=== PATIENT | female | born 1945 | race Caucasian/White ===

== ENCOUNTER 2020-02-09 12:30 | Outpatient (RCR) | payer MEDICARE, OTHER, SELFPAY ==
[2020-01-25 13:05] VITALS: BMI 20.7
[2020-02-02 11:05] VITALS: BP 154/93; PULSE 68; RESP 18; TEMP 36.1; BMI 20.1
--- NOTE | 2020-02-02 17:14 | HP.PCM_ITS ---
(1) Breast cancer, left breast Status: Chronic Current Visit: Yes Qualifiers: Breast location: overlapping sites of breast Estrogen receptor status: negative Patient sex: female Qualified Code(s): C50.812 - Malignant neoplasm of overlapping sites of left female breast; Z17.1 - Estrogen receptor negative status [ER-] Code(s): C50.912 - Malignant neoplasm of unspecified site of left female breast (2) HTN (hypertension) Status: Chronic Current Visit: Yes Qualifiers: Hypertension type: essential hypertension Qualified Code(s): I10 - Essential (primary) hypertension Code(s): I10 - Essential (primary) hypertension (3) Invasive ductal carcinoma of breast, stage 3 Status: Acute Current Visit: Yes Qualifiers: Laterality: left Qualified Code(s): C50.912 - Malignant neoplasm of unspecified site of left female breast Code(s): C50.919 - Malignant neoplasm of unspecified site of unspecified female breast (4) Wound of left breast Status: Acute Current Visit: Yes Qualifiers: Encounter type: subsequent encounter Qualified Code(s): S21.002D - Unspecified open wound of left breast, subsequent encounter Code(s): S21.002A - Unspecified open wound of left breast, initial encounter History of Present Illness Date of Service: 02/02/20 Chief Complaint: Invasive left breast carcinoma with skin ulceration History of Wound: Marilia Lino is a sweet 74 yo female who presents to the wound healing center for evaluation and treatment of her left breast from metastatic breast cancer with skin ulceration and break down. She is referred by Dr. Anand. She is seeking palliative treatment at this time and she plans on starting palliative radiation treatment this coming week and has not decided at this time whether she will undergo any additional chemotherapy. She reports that the skin is tender and irritated and does intermittently bleed and drains moderately at times. She has been applying essential oil frankincense and petroleum based ointment as well as using feminine hygiene products to manage the drainage. She denies any fever or chills, worsening erythema or odor. Past Medical History Past Medical History: Chronic Problems (Last Updated 01/25/20 @ 12:59 by Dedra Andrews RN) Breast cancer, left breast (Chronic) HTN (hypertension) (Chronic) Surgical History: mastectomy - right breast Allergies/Adverse Reactions: Allergies No Known Allergies Allergy (Unverified 01/25/20 12:56) Home Medications: Ambulatory Orders Medication Instructions Recorded Ibuprofen [Advil] 200 mg PO Q6H PRN PRN 02/02/20 - Family History Maternal Family History: Family History (Last Updated 01/25/20 @ 13:04 by Dedra Andrews RN) Mother Breast cancer Brother Prostate cancer Lives: Spouse/ Significant Other Smoking Status: Never smoker Tobacco Use: Non-smoker Alcohol: None Drugs: None Review of Systems Constitutional: Denies: Chills, Fever, Weight Change Eyes: Denies: Pain, Vision Change HEENT: Denies: Difficulty Hearing, Difficulty Swallowing, Sinus Congestion Cardiovascular: Denies: Chest Pain, Palpitations Respiratory: Denies: Cough, Shortness of Breath Gastrointestinal: Denies: Diarrhea, Nausea, Vomiting Genitourinary: Denies: Dysuria, Hematuria Skin: Reports: Skin Changes, Wounds Endocrine: Denies: Heat/ Cold Intolerance, Polydipsia, Polyuria Hematologic/ Lymphatic: Denies: Easy Bruising, Easy Bleeding - Physical Exam Vital Signs Temp Pulse Resp BP 97 F L 68 18 154/93 H 02/02/20 11:05 02/02/20 11:05 02/02/20 11:05 02/02/20 11:05 General: Alert, Oriented x3, Cooperative, No apparent distress HEENT: Atraumatic, Normocephalic Oral: Moist Mucosa Neck: Supple Lungs: Clear to auscultation Cardiovascular: Regular rate Abdomen: Soft, Non Tender Extremities: No edema Skin: Ulcer/ Wound, Rash Present Wound Measurements and Assessment WC - Nurse 1 - General Ulcer Measurement Start: 02/02/20 10:48 Freq: Status: Active Protocol: Activity Type Activity Date Activity User E-Sign Co-Sign Detail Recorded Client Recorded Date Recorded By Document 02/02/20 11:05 RB [id number] 02/02/20 11:16 RB 02/02/20 11:05 Wound Center Nurse 1 [Ulcer Assessment] L breast -Combined with other wound No -Current Size (cm) - Length 5 -Current Size (cm) - Width 8 -Current Size (cm) - Depth 0.2 -Total Square Cm 40 -Photo Taken Yes -Tunneling No -Undermining/Tunneling No -Circular Undermining No -Exudate Amt Medium -Exudate Type Serosanguineous -Wound Margin Thickened -Granulation Amt Medium (34-66%) -Granulation Quality [place] -Slough/Fibrin Yes -Necrosis Amt Large (67-100%) -Necrotic Tissue Type Adherent Slough -Structure Exposed N/A -Texture (Suha-wound Skin Appearance) Assessed, Friable -Moisture (Usha-wound Skin Appearance Assessed ) -Color (Suha-wound Skin Appearance) Assessed, Erythema -Temperature (Suha-wound Skin No Abnormality Appearance) (Pt Warm) -Tenderness on Palpation (Suha-wound No Skin Appearance) -Ulcer Cleansing Wound Cleanser -Foul Odor after Cleansing No -Anesthetic Used 4% Lidocaine Solution - Nurse 2 - General Ulcer Notes Start: 02/02/20 10:48 Freq: Status: Active Protocol: Activity Type Activity Date Activity User E-Sign Co-Sign Detail Recorded Client Recorded Date Recorded By Document 02/02/20 12:46 DV [id number] 02/02/20 12:59 DV 02/02/20 12:46 Wound Center Nurse 2 [Procedure/Treatment] -Time 12:59 -Correct Patient Yes -Correct Side, Site, Position Yes -Correct Procedure No -Procedure Performed No -Wound/Ulcer Outcome Not Healed -Ulcer Cleansing Rinsed/ Irrigated with Saline -Foul Odor after Cleansing No -Bioengineered Tissue No -Bleeding Controlled with Pressure -Offloading No [See Physician Procedure note for Specifics] Pain Scale: 0-10 Numeric [Pain] -Is Patient Pain Free? Yes Psych/Mental Status: Normal Affect, Appropriate Debridement Note Post-Debridement Measurements/Treatment [facility] Nurse 2 - General Ulcer Notes Start: 02/02/20 10:48 Freq: Status: Active Protocol: Activity Type Activity Date Activity User E-Sign Co-Sign Detail Recorded Client Recorded Date Recorded By Document 02/02/20 12:46 DV [id number] 02/02/20 12:59 DV 02/02/20 12:46 Wound Center Nurse 2 L breast -Time 12:59 -Correct Patient Yes -Correct Side, Site, Position Yes -Correct Procedure No -Procedure Performed No -Wound/Ulcer Outcome Not Healed -Ulcer Cleansing Rinsed/ Irrigated with Saline -Foul Odor after Cleansing No -Bioengineered Tissue No -Bleeding Controlled with Pressure -Offloading No Pain Scale: 0-10 Numeric Is Patient Pain Free? Yes Wound debrided: left breast Laterality: Left No debridement was completed today - due to no open wound - mainly skin breakdown at present Assessment/Plan Active Problems (Last Updated 01/25/20 @ 12:59 by Dedra Andrews RN) Breast cancer, left breast (Chronic) HTN (hypertension) (Chronic) Invasive ductal carcinoma of breast, stage 3 (Acute) Wound of left breast (Acute) Assessment: left breast cancer - metastatic with skin ulceration and breakdown Plan: Marilia's left breast wound/skin breakdown was evaluated and examined today. There is no significant open wound present at this time but there is skin breakdown and with the initiation of radiation treatment it is likely there will be increased skin irritation and breakdown and likely ulceration developing as well as moderate to heavy drainage from the skin breakdown and radiation treatment. Will dress her left breast wound and irritation with Medihoney and extrasorb dressings and/or ABD if needed for the anticipated heavy drainage she will experience with radiation to the area. Would also consider using Meidhoney alginate to help absorb dressing and provide comfort. Will have her follow up in 1 week to assess the area and adjust treatment as necessary based on her response to the above and to radiation. Encouraged her to call with increased erythema, odor, drainage or fever or chills.
[2020-02-09 12:25] VITALS: BP 161/66; PULSE 69; RESP 16; TEMP 36.8; BMI 20.1
--- NOTE | 2020-02-09 17:54 | PN.PCM_ITS ---
(1) HTN (hypertension) Status: Chronic Current Visit: Yes Qualifiers: Hypertension type: essential hypertension Qualified Code(s): I10 - Essential (primary) hypertension Code(s): I10 - Essential (primary) hypertension (2) Wound of left breast Status: Chronic Current Visit: Yes Qualifiers: Encounter type: subsequent encounter Qualified Code(s): S21.002D - Unspecified open wound of left breast, subsequent encounter Code(s): S21.002A - Unspecified open wound of left breast, initial encounter (3) Cancer of left female breast Status: Chronic Current Visit: Yes Qualifiers: Breast location: overlapping sites of breast Estrogen receptor status: negative Qualified Code(s): C50.812 - Malignant neoplasm of overlapping sites of left female breast; Z17.1 - Estrogen receptor negative status [ER-] Code(s): C50.912 - Malignant neoplasm of unspecified site of left female breast Type of Wound Date of Service: 02/09/20 Chief Complaint: Invasive left breast carcinoma with skin ulceration History of Wound: Marilia Lino is a sweet 74 yo female who presents to the wound healing center for evaluation and treatment of her left breast from metastatic breast cancer with skin ulceration and break down. She is referred by Dr. Anand. She is seeking palliative treatment at this time and she plans on starting palliative radiation treatment this coming week and has not decided at this time whether she will undergo any additional chemotherapy. She reports that the skin is tender and irritated and does intermittently bleed and drains moderately at times. She has been applying essential oil frankincense and petroleum based ointment as well as using feminine hygiene products to manage the drainage. She denies any fever or chills, worsening erythema or odor. Progress of Wound: Marilia's left breast wound was evaluated and selectively debrided today. She tolerated the dressings of [facility] well and has noted increased comfort. Drainage has been variable but less bleeding. She completed 5 radiation treatments as of today. She denies increased odor, pain. - Physical Exam Vital Signs Temp Pulse Resp BP 98.2 F 69 16 161/66 H 02/09/20 12:25 02/09/20 12:25 02/09/20 12:25 02/09/20 12:25 General: Alert, Oriented x3, Cooperative, No apparent distress HEENT: Atraumatic, Normocephalic Oral: Moist Mucosa Skin: Ulcer/ Wound, Rash Present Wound Measurements and Assessment - Nurse 1 - General Ulcer Measurement Start: 02/02/20 10:48 Freq: Status: Active Protocol: Activity Type Activity Date Activity User E-Sign Co-Sign Detail Recorded Client Recorded Date Recorded By Document 02/09/20 12:25 [facility] [id number] 02/09/20 12:27 [facility] 02/09/20 12:25 Wound Center Nurse 1 [Ulcer Assessment] L breast -Combined with other wound No -Current Size (cm) - Length 5.5 -Current Size (cm) - Width 8.8 -Current Size (cm) - Depth 0.2 -Total Square Cm 48.40 -Photo Taken No -Epithelialization None Present -Tunneling No -Undermining/Tunneling No -Circular Undermining No -Exudate Amt Small -Exudate Type Serosanguineous -Wound Margin Distinct, Outline Attached -Granulation Amt Medium (34-66%) -Granulation Quality [place] -Slough/Fibrin Yes -Necrosis Amt Medium (34-66%) -Necrotic Tissue Type Adherent Slough -Texture (Suha-wound Skin Appearance) Assessed, Excoriation, Scarring,Rash -Moisture (Suha-wound Skin Appearance Assessed ) -Color (Suha-wound Skin Appearance) Assessed, Erythema -Temperature (Suha-wound Skin No Abnormality Appearance) (Pt Warm) -Tenderness on Palpation (Suha-wound Yes Skin Appearance) -Ulcer Cleansing Rinsed/ Irrigated with Saline -Foul Odor after Cleansing No -Anesthetic Used 4% Lidocaine Solution - Nurse 2 - General Ulcer CM Notes Start: 02/02/20 10:48 Freq: Status: Active Protocol: Activity Type Activity Date Activity User E-Sign Co-Sign Detail Recorded Client Recorded Date Recorded By Document 02/09/20 13:17 DV [id number] 02/09/20 13:26 DV 02/09/20 13:17 Wound Center Nurse 2 [Procedure/Treatment] -Time 13:25 -Correct Patient Yes -Correct Side, Site, Position Yes -Correct Procedure No -Procedure Performed No -Post Debridement Size (cm) - Length 6.0 -Post Debridement Size (cm) - Width 9.0 -Post Debridement Size (cm) - Depth 0.2 -Total Square Cm 54.00 -Wound/Ulcer Outcome Not Healed -Ulcer Cleansing Rinsed/ Irrigated with Saline -Foul Odor after Cleansing No -Bioengineered Tissue No -Bleeding Controlled with Pressure -Offloading No -Treatment Response Procedure Tolerated Well [See Physician Procedure note for Specifics] Pain Scale: 0-10 Numeric [Pain] -Is Patient Pain Free? Yes Psych/Mental Status: Normal Affect, Appropriate Debridement Note Post-Debridement Measurements/Treatment WC - Nurse 2 - General Ulcer CM Notes Start: 02/02/20 10:48 Freq: Status: Active Protocol: Activity Type Activity Date Activity User E-Sign Co-Sign Detail Recorded Client Recorded Date Recorded By Document 02/02/20 12:46 DV [id number] 02/02/20 12:59 DV Document 02/09/20 13:17 DV [id number] 02/09/20 13:26 DV 02/02/20 02/09/20 12:46 13:17 Wound Center Nurse 2 L breast -Time 12:59 13:25 -Correct Patient Yes Yes -Correct Side, Site, Position Yes Yes -Correct Procedure No No -Procedure Performed No No -Post Debridement Size (cm) - Length 6.0 -Post Debridement Size (cm) - Width 9.0 -Post Debridement Size (cm) - Depth 0.2 -Total Square Cm 54.00 -Wound/Ulcer Outcome Not Healed Not Healed -Ulcer Cleansing Rinsed/ Rinsed/ Irrigated with Irrigated with Saline Saline -Foul Odor after Cleansing No No -Bioengineered Tissue No No -Bleeding Controlled with Pressure Pressure -Offloading No No -Treatment Response Procedure Tolerated Well Pain Scale: 0-10 Numeric Is Patient Pain Free? Yes Yes Wound debrided: left breast Laterality: Left Type of Debridement: Selective debridement Depth: Down to and including healthy tissue Percentage of wound debrided: 100 Instrument Used: - - gauze Tissue Removed: devitalized tissue Severity: Limited To Skin Breakdown Amount of bleeding with debridement: None Bleeding Controlled with: Compression and gauze Patient tolerated procedure well Assessment/Plan Active Problems (Last Reviewed 02/08/20 @ 10:55 by Ria Coyne) Cancer of left female breast (Chronic) Regional lymph node metastasis present (Acute) Bone metastases (Acute) Liver metastases (Acute) HTN (hypertension) (Chronic) Wound of left breast (Chronic) Assessment: left breast cancer - metastatic with skin ulceration and breakdown Plan: Marilia's left breast wound was evaluated and debrided today. There is superficial skin breakdown throughout with subcutaneous tissue exposure in some areas. Some ulceration is developing as well as variable moderate to heavy drainage from the skin breakdown and radiation treatment. Will dress her left breast wound with Medihoney and extrasorb dressings and/or ABD if needed for the heavy drainage she is experiencing. Would also consider using Medihoney alginate to help absorb drainage and provide comfort. Will have her follow up in 2 weeks to assess the area and adjust treatment as necessary based on her response to the above and to radiation. Encouraged her to call with increased erythema, odor, drainage or fever or chills.
== END 2020-02-18 23:59 ==
LOC: WC 12:30
PROVIDERS: PCP Legal Medicine; Referring Provider Student in an Organized Health Care Education/Training Program; Visit Provider Family Medicine
DX: C50.912 Malignant neoplasm of unspecified site of left female breast (principal); L98.491 Non-pressure chronic ulcer of skin of other sites limited to breakdown of skin; I10 Essential (primary) hypertension; Z17.1 Estrogen receptor negative status [ER-]
CPT/HCPCS: 97602; 99213; G0463

== ENCOUNTER → 2020-02-28 14:37 | Outpatient (CLI) | payer MEDICARE, OTHER, SELFPAY ==
[2020-01-25 13:05] VITALS: BMI 20.7
[2020-02-28 09:08] VITALS: BMI 20.6
--- NOTE | 2020-02-28 14:50 | RAD_ITS ---
STUDY: X-RAY - CERVICAL SPINE REASON FOR EXAM: Female, 74 years old. PAIN, NKI. TECHNIQUE: 3 view(s) of the cervical spine were obtained. COMPARISON: None FINDINGS: Normal anterior atlantoaxial articulation. Normal odontoid process. There is straightening of the normal cervical lordosis. There is multi-level endplate spondylosis. There is multi-level degenerative disc disease with multilevel disc space narrowing. The soft tissue structures are unremarkable. There is no demonstrated fracture of the cervical spine. RAD/Cerv Spine 2 or 3 Views IMPRESSION: Multilevel degenerative changes, no acute findings Electronically Signed: Kenneth Pemberton MD at 16:49 EDT , Service support ,
--- NOTE | 2020-02-28 14:50 | RAD_ITS ---
STUDY: X-RAY - LUMBAR SPINE REASON FOR EXAM: Female, 74 years old. Radiating left leg pain TECHNIQUE: 3 view(s) of the lumbar spine were obtained. COMPARISON: None FINDINGS: Normal lumbar lordosis. There is a levoscoliosis of the lumbar spine. There is a normal alignment of the vertebrae in the lateral view from L1 L4. There is a grade 1 spondylolisthesis at L4-5.. There is multilevel endplate spondylosis of the lumbar vertebrae. There is multi-level degenerative disc disease with multi-level disc space narrowing. There is no demonstrated fracture. The soft tissue structures are unremarkable. RAD/Lumbar Spine 2 or 3 Views IMPRESSION: Multilevel degenerative changes with a levoscoliosis. Electronically Signed: Kenneth Pemberton MD at 16:50 EDT , Service support ,
== END ==
PROVIDERS: PCP Legal Medicine; Referring Provider Anesthesiology Pain Medicine; Visit Provider Anesthesiology Pain Medicine
DX: M54.9 Dorsalgia, unspecified (principal); M54.2 Cervicalgia
CPT/HCPCS: 36591; 72040; 72100; 80053; 85025; 86300; 96367; 96401; 96413; J7050; A4216; J0897; J2405; J3490; J9171

== ENCOUNTER 2020-03-15 09:00 | Outpatient (RCR) | payer MEDICARE, OTHER, SELFPAY ==
[2020-01-25 13:05] VITALS: BMI 20.7
[2020-02-14 10:45] VITALS: BMI 20.9
[2020-02-19 00:33] VITALS: BP 161/66; PULSE 69; RESP 16; TEMP 36.8
[2020-02-28 09:08] VITALS: BMI 20.6
[2020-03-01 08:44] VITALS: BP 137/65; PULSE 61; RESP 16; TEMP 37; BMI 20.6
--- NOTE | 2020-03-01 18:25 | PCM.WC.PN ---
(1) Bone metastases Status: Acute Code(s): C79.51 - Secondary malignant neoplasm of bone (2) Regional lymph node metastasis present Status: Acute Code(s): C77.9 - Secondary and unspecified malignant neoplasm of lymph node, unspecified (3) Cancer of left female breast Status: Chronic Qualifiers: Breast location: overlapping sites of breast Estrogen receptor status: negative Qualified Code(s): C50.812 - Malignant neoplasm of overlapping sites of left female breast; Z17.1 - Estrogen receptor negative status [ER-] Code(s): C50.912 - Malignant neoplasm of unspecified site of left female breast (4) Wound of left breast Status: Chronic Qualifiers: Encounter type: subsequent encounter Qualified Code(s): S21.002D - Unspecified open wound of left breast, subsequent encounter Code(s): S21.002A - Unspecified open wound of left breast, initial encounter Type of Wound Date of Service: 03/01/20 Chief Complaint: Invasive left breast carcinoma with skin ulceration History of Wound: Marilia Lino is a sweet 74 yo female who presents to the wound healing center for evaluation and treatment of her left breast from metastatic breast cancer with skin ulceration and break down. She is referred by Dr. Anand. She is seeking palliative treatment at this time and she plans on starting palliative radiation treatment this coming week and has not decided at this time whether she will undergo any additional chemotherapy. She reports that the skin is tender and irritated and does intermittently bleed and drains moderately at times. She has been applying essential oil frankincense and petroleum based ointment as well as using feminine hygiene products to manage the drainage. She denies any fever or chills, worsening erythema or odor. Progress of Wound: Marilia's left breast wound was evaluated and selectively debrided today. She tolerated the dressings of [facility] well and has noted increased comfort. Drainage has been variable but less bleeding. She completed her radiation treatments as of today. She denies increased odor but there has been more pain. Drainage is still moderate to heavy at times. - Physical Exam Vital Signs Temp Pulse Resp BP 98.6 F 61 16 137/65 H 03/01/20 08:44 03/01/20 08:44 03/01/20 08:44 03/01/20 08:44 General: Alert, Oriented x3, Cooperative, No apparent distress HEENT: Atraumatic, Normocephalic Oral: Moist Mucosa Skin: Ulcer/ Wound, Burn Wound Measurements and Assessment WC - Nurse 1 - General Ulcer Measurement Start: 03/01/20 08:43 Freq: Status: Active Protocol: Activity Type Activity Date Activity User E-Sign Co-Sign Detail Recorded Client Recorded Date Recorded By Document 03/01/20 08:44 MW [id number] 03/01/20 08:51 MW 03/01/20 08:44 Wound Center Nurse 1 [Ulcer Assessment] L breast -Combined with other wound No -Current Size (cm) - Length 5.5 -Current Size (cm) - Width 9.0 -Current Size (cm) - Depth 0.1 -Total Square Cm 49.50 -Photo Taken No -Epithelialization None Present -Tunneling No -Undermining/Tunneling No -Circular Undermining No -Exudate Amt Medium -Exudate Type Serosanguineous -Wound Margin Flat & Intact -Granulation Amt Small (1-33%) -Granulation Quality Red -Slough/Fibrin Yes -Necrosis Amt Large (67-100%) -Necrotic Tissue Type Adherent Slough -Structure Exposed N/A -Texture (Suha-wound Skin Appearance) Assessed -Moisture (Suha-wound Skin Appearance Assessed,Dry/ ) Scaly -Color (Suha-wound Skin Appearance) Assessed,Rubor -Temperature (Suha-wound Skin No Abnormality Appearance) (Pt Warm) -Tenderness on Palpation (Suha-wound Yes Skin Appearance) -Ulcer Cleansing Rinsed/ Irrigated with Saline -Foul Odor after Cleansing No -Anesthetic Used 4% Lidocaine Solution [Edema Assessment] -Lower Limb Edema Present No WC - Nurse 2 - General Ulcer CM Notes Start: 03/01/20 08:43 Freq: Status: Active Protocol: Activity Type Activity Date Activity User E-Sign Co-Sign Detail Recorded Client Recorded Date Recorded By Document 03/01/20 09:03 DV [id number] 03/01/20 09:17 DV 03/01/20 09:03 Wound Center Nurse 2 [Procedure/Treatment] L breast -Time 09:04 -Correct Patient Yes -Correct Side, Site, Position Yes -Correct Procedure Yes -Procedure Performed Yes -Type of Procedure Debridement -Clinical Debridement Selective -Post Debridement Size (cm) - Length 6.0 -Post Debridement Size (cm) - Width 9.0 -Post Debridement Size (cm) - Depth 0.1 -Total Square Cm 54.00 -Wound/Ulcer Outcome Not Healed -Ulcer Cleansing Rinsed/ Irrigated with Saline -Foul Odor after Cleansing No -Bioengineered Tissue No -Bleeding Controlled with Pressure -Offloading No -Treatment Response Procedure Tolerated Well [See Physician Procedure note for Specifics] Pain Scale: 0-10 Numeric [Pain] -Is Patient Pain Free? Yes Psych/Mental Status: Normal Affect, Appropriate Debridement Note Post-Debridement Measurements/Treatment WC - Nurse 2 - General Ulcer CM Notes Start: 03/01/20 08:43 Freq: Status: Active Protocol: Activity Type Activity Date Activity User E-Sign Co-Sign Detail Recorded Client Recorded Date Recorded By Document 03/01/20 09:03 DV [id number] 03/01/20 09:17 DV 03/01/20 09:03 Wound Center Nurse 2 L breast -Time 09:04 -Correct Patient Yes -Correct Side, Site, Position Yes -Correct Procedure Yes -Procedure Performed Yes -Type of Procedure Debridement -Clinical Debridement Selective -Post Debridement Size (cm) - Length 6.0 -Post Debridement Size (cm) - Width 9.0 -Post Debridement Size (cm) - Depth 0.1 -Total Square Cm 54.00 -Wound/Ulcer Outcome Not Healed -Ulcer Cleansing Rinsed/ Irrigated with Saline -Foul Odor after Cleansing No -Bioengineered Tissue No -Bleeding Controlled with Pressure -Offloading No -Treatment Response Procedure Tolerated Well Pain Scale: 0-10 Numeric Is Patient Pain Free? Yes Wound debrided: left breast Laterality: Left Type of Debridement: Selective debridement Anesthesia Used: 4% Lidocaine Solution, 5% Lidocaine Gel Depth: Down to and including healthy tissue, in the subcutaneous layer Percentage of wound debrided: 100, - - gauze Tissue Removed: devitalized tissue, yellow slough Severity: Fat Layer Exposed Amount of bleeding with debridement: Mild Bleeding Controlled with: Compression and gauze Patient tolerated procedure well Assessment/Plan Assessment: left breast cancer - metastatic with skin ulceration and breakdown Plan: Marilia's left breast wound was evaluated and debrided today. There is more superficial skin breakdown throughout with subcutaneous tissue exposure in some areas. Some ulcerations are developing as well as variable moderate to heavy drainage from the skin breakdown and radiation treatment. Will continue to dress her left breast wound with Medihoney and extrasorb dressings and/or ABD if needed for the heavy drainage she is experiencing. Would also consider using Medihoney alginate to help absorb drainage and provide comfort. Will have her follow up in 2 weeks to assess the area and adjust treatment as necessary based on her response to the above. Encouraged her to call with increased erythema, odor, drainage or fever or chills.
[2020-03-15 09:07] VITALS: BP 150/55; PULSE 73; RESP 18; TEMP 37.7; BMI 20.6
--- NOTE | 2020-03-15 18:00 | PCM.WC.PN ---
(1) Cancer of left female breast Status: Chronic Qualifiers: Breast location: overlapping sites of breast Code(s): C50.912 - Malignant neoplasm of unspecified site of left female breast (2) Metastatic breast cancer Status: Chronic Code(s): C50.919 - Malignant neoplasm of unspecified site of unspecified female breast (3) Wound of left breast Status: Chronic Qualifiers: Encounter type: subsequent encounter Code(s): S21.002A - Unspecified open wound of left breast, initial encounter Type of Wound Date of Service: 03/15/20 Chief Complaint: Invasive left breast carcinoma with skin ulceration History of Wound: Marilia Lino is a sweet 74 yo female who presents to the wound healing center for evaluation and treatment of her left breast from metastatic breast cancer with skin ulceration and break down. She is referred by Dr. Anand. She is seeking palliative treatment at this time and she plans on starting palliative radiation treatment this coming week and has not decided at this time whether she will undergo any additional chemotherapy. She reports that the skin is tender and irritated and does intermittently bleed and drains moderately at times. She has been applying essential oil frankincense and petroleum based ointment as well as using feminine hygiene products to manage the drainage. She denies any fever or chills, worsening erythema or odor. Progress of Wound: Marilia's left breast wound was evaluated and selectively debrided today. She tolerated the dressings of [facility] well and has noted increased comfort. Drainage has been variable but less bleeding. She continues radiation treatments and will complete these in 1 week. She denies increased odor, pain. - Physical Exam Vital Signs Temp Pulse Resp BP 99.8 F H 73 18 150/55 H 03/15/20 09:07 03/15/20 09:07 03/15/20 09:07 03/15/20 09:07 General: Alert, Oriented x3, Cooperative, No apparent distress HEENT: Atraumatic, Normocephalic Oral: Moist Mucosa Skin: Ulcer/ Wound Wound Measurements and Assessment WC - Nurse 1 - General Ulcer Measurement Start: 03/01/20 08:43 Freq: Status: Active Protocol: Activity Type Activity Date Activity User E-Sign Co-Sign Detail Recorded Client Recorded Date Recorded By Document 03/15/20 09:07 [email or web address] [id number] 03/15/20 09:17 JF 03/15/20 09:07 Wound Center Nurse 1 [Ulcer Assessment] L breast -Combined with other wound No -Current Size (cm) - Length 5.0 -Current Size (cm) - Width 13.0 -Current Size (cm) - Depth 0.2 -Total Square Cm 65.00 -Photo Taken No -Epithelialization None Present -Tunneling No -Undermining/Tunneling No -Circular Undermining No -Exudate Amt Medium -Exudate Type Serosanguineous -Wound Margin Flat & Intact -Granulation Amt Small (1-33%) -Granulation Quality [place] -Slough/Fibrin Yes -Necrosis Amt Large (67-100%) -Necrotic Tissue Type Adherent Slough -Structure Exposed N/A -Texture (Suha-wound Skin Appearance) Assessed, Friable, Scarring -Moisture (Suha-wound Skin Appearance Assessed,Dry/ ) Scaly -Color (Suha-wound Skin Appearance) Assessed -Temperature (Suha-wound Skin No Abnormality Appearance) (Pt Warm) -Tenderness on Palpation (Suha-wound No Skin Appearance) -Ulcer Cleansing Rinsed/ Irrigated with Saline -Foul Odor after Cleansing No -Anesthetic Used 4% Lidocaine Solution [Edema Assessment] -Lower Limb Edema Present NA WC - Nurse 2 - General Ulcer CM Notes Start: 03/01/20 08:43 Freq: Status: Active Protocol: Activity Type Activity Date Activity User E-Sign Co-Sign Detail Recorded Client Recorded Date Recorded By Document 03/15/20 10:16 DV [id number] 03/15/20 10:28 DV 03/15/20 10:16 Wound Center Nurse 2 [Procedure/Treatment] L breast -Time 10:18 -Correct Patient Yes -Correct Side, Site, Position Yes -Correct Procedure Yes -Procedure Performed Yes -Type of Procedure Debridement -Clinical Debridement Selective -Post Debridement Size (cm) - Length 10.0 -Post Debridement Size (cm) - Width 15.0 -Post Debridement Size (cm) - Depth 0.1 -Total Square Cm 150.00 -Wound/Ulcer Outcome Not Healed -Ulcer Cleansing Rinsed/ Irrigated with Saline -Foul Odor after Cleansing No -Bioengineered Tissue No -Bleeding Controlled with Pressure -Offloading No -Treatment Response Procedure Tolerated Well [See Physician Procedure note for Specifics] Pain Scale: 0-10 Numeric [Pain] -Is Patient Pain Free? Yes Psych/Mental Status: Normal Affect, Appropriate Debridement Note Post-Debridement Measurements/Treatment WC - Nurse 2 - General Ulcer CM Notes Start: 03/01/20 08:43 Freq: Status: Active Protocol: Activity Type Activity Date Activity User E-Sign Co-Sign Detail Recorded Client Recorded Date Recorded By Document 03/01/20 09:03 DV [id number] 03/01/20 09:17 DV Document 03/15/20 10:16 DV [id number] 03/15/20 10:28 DV 03/01/20 03/15/20 09:03 10:16 Wound Center Nurse 2 L breast -Time 09:04 10:18 -Correct Patient Yes Yes -Correct Side, Site, Position Yes Yes -Correct Procedure Yes Yes -Procedure Performed Yes Yes -Type of Procedure Debridement Debridement -Clinical Debridement Selective Selective -Post Debridement Size (cm) - Length 6.0 10.0 -Post Debridement Size (cm) - Width 9.0 15.0 -Post Debridement Size (cm) - Depth 0.1 0.1 -Total Square Cm 54.00 150.00 -Wound/Ulcer Outcome Not Healed Not Healed -Ulcer Cleansing Rinsed/ Rinsed/ Irrigated with Irrigated with Saline Saline -Foul Odor after Cleansing No No -Bioengineered Tissue No No -Bleeding Controlled with Pressure Pressure -Offloading No No -Treatment Response Procedure Procedure Tolerated Well Tolerated Well Pain Scale: 0-10 Numeric Is Patient Pain Free? Yes Yes Wound debrided: left breast Laterality: Left Type of Debridement: Selective debridement Anesthesia Used: 4% Lidocaine Solution Depth: Down to and including healthy tissue, in the subcutaneous layer Percentage of wound debrided: 90 Instrument Used: - - gauze Tissue Removed: yellow slough, devitalized tissue Severity: Fat Layer Exposed Amount of bleeding with debridement: Mild Bleeding Controlled with: Compression and gauze Patient tolerated procedure well Assessment/Plan Assessment: left breast cancer - metastatic with skin ulceration and breakdown Plan: Marilia's left breast wound was evaluated and debrided today. There is superficial skin breakdown throughout with subcutaneous tissue exposure in some areas. Some ulceration is developing as well as variable moderate to heavy drainage from the skin breakdown and radiation treatment. Will dress her left breast wound with Medihoney and extrasorb dressings and/or ABD if needed for the heavy drainage she is experiencing. Would also consider using Medihoney alginate to help absorb drainage and provide comfort. Will have her follow up in 2 weeks to assess the area and adjust treatment as necessary based on her response to the above and to radiation. Encouraged her to call with increased erythema, odor, drainage or fever or chills.
== END 2020-03-19 23:59 ==
LOC: WC 09:00
PROVIDERS: PCP Legal Medicine; Referring Provider Student in an Organized Health Care Education/Training Program; Visit Provider Family Medicine
DX: C50.812 Malignant neoplasm of overlapping sites of left female breast (principal); C77.9 Secondary and unspecified malignant neoplasm of lymph node, unspecified; C79.51 Secondary malignant neoplasm of bone; Z17.1 Estrogen receptor negative status [ER-]; L98.491 Non-pressure chronic ulcer of skin of other sites limited to breakdown of skin
CPT/HCPCS: 97597; 97598

== ENCOUNTER → 2020-03-27 15:10 | Outpatient (CLI) | payer MEDICARE, OTHER, SELFPAY ==
[2020-01-25 13:05] VITALS: BMI 20.7
--- NOTE | 2020-03-27 15:15 | VDLE_ITS ---
Reason For Study: Lt leg pain RIGHT LEFT GSV is normal. GSV is normal. CFV is compressible, spontaneous, phasic, CFV is compressible, spontaneous, phasic, competent and demonstrates normal competent, and demonstrates normal augmentation. augmentation. FV is compressible, spontaneous, phasic, FV is compressible, spontaneous, phasic, competent and demonstrates normal competent and demonstrates normal augmentation. augmentation. POP V is compressible, spontaneous, phasic, POP V is compressible, spontaneous, phasic, competent and demonstrates normal competent and demonstrates normal augmentation. augmentation. T/P Trunk is compressible. T/P Trunk is compressible. PTV is compressible. PTV is compressible. RT PerV is compressible. LT PerV is compressible. Procedure Exam performed in department. A preliminary report was called and/or faxed to Jenise. Interpretation Summary Deep veins of the lower extremities are bilaterally patent and compressible segmentally. There is no evidence of deep vein thrombosis on either side. Valvular competence appears intact within the proximal deep venous systems bilaterally. The great saphenous veins appear bilaterally patent and compressible segmentally. Ordering Physician: Tristan Burden Referring Physician: Clarence Dwyer Performed By: Courtney Albarran RVT and Student
== END ==
PROVIDERS: PCP Legal Medicine; Referring Provider Anesthesiology Pain Medicine; Visit Provider Anesthesiology Pain Medicine
DX: Z51.11 Encounter for antineoplastic chemotherapy (principal); C50.812 Malignant neoplasm of overlapping sites of left female breast; M79.605 Pain in left leg
CPT/HCPCS: 36591; 80053; 82607; 82728; 82746; 83540; 83550; 85025; 86300; 93970; 96367; 96401; 96413; J7050; A4216; J0897; J2405; J3490; J9171

== ENCOUNTER 2020-04-12 10:00 | Outpatient (RCR) | payer MEDICARE, OTHER, SELFPAY ==
[2020-01-25 13:05] VITALS: BMI 20.7
[2020-03-20 00:30] VITALS: BP 150/55; PULSE 73; RESP 18; TEMP 37.7; BMI 20.2
[2020-03-29 09:34] VITALS: BP 131/48; PULSE 88; RESP 18; TEMP 36.6
--- NOTE | 2020-03-29 15:50 | PN.PCM_ITS ---
(1) Cancer of left female breast Status: Chronic Current Visit: Yes Qualifiers: Breast location: overlapping sites of breast Code(s): C50.912 - Malignant neoplasm of unspecified site of left female breast (2) Wound of left breast Status: Chronic Current Visit: Yes Qualifiers: Encounter type: subsequent encounter Code(s): S21.002A - Unspecified open wound of left breast, initial encounter Type of Wound Date of Service: 03/29/20 Chief Complaint: Invasive left breast carcinoma with skin ulceration History of Wound: Marilia Lino is a sweet 74 yo female who presents to the wound healing center for evaluation and treatment of her left breast from metastatic breast cancer with skin ulceration and break down. She is referred by Dr. Anand. She is seeking palliative treatment at this time and she plans on starting palliative radiation treatment this coming week and has not decided at this time whether she will undergo any additional chemotherapy. She reports that the skin is tender and irritated and does intermittently bleed and drains moderately at times. She has been applying essential oil frankincense and petroleum based ointment as well as using feminine hygiene products to manage the drainage. She denies any fever or chills, worsening erythema or odor. Progress of Wound: Marilia's left breast wound was evaluated and selectively debrided today. She tolerated the dressings of [facility] well and has noted increased comfort. Drainage has been variable but heavy at times requiring twice daily changes but less bleeding. She denies increased odor, pain. - Physical Exam Vital Signs Temp Pulse Resp BP 97.8 F 88 18 131/48 H 03/29/20 09:34 03/29/20 09:34 03/29/20 09:34 03/29/20 09:34 General: Alert, Oriented x3, Cooperative, No apparent distress HEENT: Atraumatic, Normocephalic Skin: Ulcer/ Wound Wound Measurements and Assessment WC - Nurse 1 - General Ulcer Measurement Start: 03/29/20 09:34 Freq: Status: Active Protocol: Activity Type Activity Date Activity User E-Sign Co-Sign Detail Recorded Client Recorded Date Recorded By Document 03/29/20 09:34 RB [id number] 03/29/20 09:44 RB 03/29/20 09:34 Wound Center Nurse 1 [Ulcer Assessment] L breast -Combined with other wound No -Current Size (cm) - Length 3.7 -Current Size (cm) - Width 10 -Current Size (cm) - Depth 0.2 -Total Square Cm 37.0 -Tunneling No -Undermining/Tunneling No -Circular Undermining No -Exudate Amt Medium -Exudate Type Serosanguineous -Wound Margin Thickened & Rolled Under -Granulation Amt Medium (34-66%) -Granulation Quality [place] -Slough/Fibrin Yes -Necrosis Amt Small (1-33%) -Necrotic Tissue Type Adherent Slough -Structure Exposed N/A -Texture (Suha-wound Skin Appearance) Assessed, Excoriation, Friable -Moisture (Suha-wound Skin Appearance Assessed ) -Color (Suha-wound Skin Appearance) Assessed, Erythema -Temperature (Suha-wound Skin No Abnormality Appearance) (Pt Warm) -Tenderness on Palpation (Suha-wound No Skin Appearance) -Ulcer Cleansing Wound Cleanser -Foul Odor after Cleansing No -Anesthetic Used 4% Lidocaine Solution WC - Nurse 2 - General Ulcer CM Notes Start: 03/29/20 09:34 Freq: Status: Active Protocol: Activity Type Activity Date Activity User E-Sign Co-Sign Detail Recorded Client Recorded Date Recorded By Document 03/29/20 10:33 DV [id number] 03/29/20 10:41 DV 03/29/20 10:33 Wound Center Nurse 2 [Procedure/Treatment] -Time 10:34 -Correct Patient Yes -Correct Side, Site, Position Yes -Correct Procedure Yes -Procedure Performed Yes -Type of Procedure Debridement -Clinical Debridement Subcutaneous -Post Debridement Size (cm) - Length 4.0 -Post Debridement Size (cm) - Width 10.0 -Post Debridement Size (cm) - Depth 0.1 -Total Square Cm 40.00 -Wound/Ulcer Outcome Not Healed -Ulcer Cleansing Rinsed/ Irrigated with Saline -Foul Odor after Cleansing No -Bioengineered Tissue No -Bleeding Controlled with Pressure -Offloading No -Treatment Response Procedure Tolerated Well [See Physician Procedure note for Specifics] Pain Scale: 0-10 Numeric [Pain] -Is Patient Pain Free? Yes Psych/Mental Status: Normal Affect, Appropriate Debridement Note Post-Debridement Measurements/Treatment WC - Nurse 2 - General Ulcer CM Notes Start: 03/29/20 09:34 Freq: Status: Active Protocol: Activity Type Activity Date Activity User E-Sign Co-Sign Detail Recorded Client Recorded Date Recorded By Document 07/10/20 10:33 DV [id number] 03/29/20 10:41 DV 03/29/20 10:33 Wound Center Nurse 2 L breast -Time 10:34 -Correct Patient Yes -Correct Side, Site, Position Yes -Correct Procedure Yes -Procedure Performed Yes -Type of Procedure Debridement -Clinical Debridement Subcutaneous -Post Debridement Size (cm) - Length 4.0 -Post Debridement Size (cm) - Width 10.0 -Post Debridement Size (cm) - Depth 0.1 -Total Square Cm 40.00 -Wound/Ulcer Outcome Not Healed -Ulcer Cleansing Rinsed/ Irrigated with Saline -Foul Odor after Cleansing No -Bioengineered Tissue No -Bleeding Controlled with Pressure -Offloading No -Treatment Response Procedure Tolerated Well Pain Scale: 0-10 Numeric Is Patient Pain Free? Yes Wound debrided: left breast Laterality: Left Type of Debridement: Selective debridement Anesthesia Used: 4% Lidocaine Solution Depth: Down to and including healthy tissue Percentage of wound debrided: 100 Instrument Used: - - gauze Tissue Removed: Yellow slough, devitalized tissue Severity: Fat Layer Exposed Amount of bleeding with debridement: Mild Bleeding Controlled with: Compression and gauze Patient tolerated procedure well Assessment/Plan Active Problems (Last Reviewed 03/27/20 @ 09:42 by Ria Coyne) Anemia (Chronic) Cancer of left female breast (Chronic) Wound of left breast (Chronic) Assessment: left breast cancer - metastatic with skin ulceration and breakdown Plan: Marilia's left breast wound was evaluated and debrided today. There is superficial skin breakdown throughout with subcutaneous tissue exposure in some areas. Some ulceration is developing as well as variable moderate to heavy drainage from the skin breakdown and radiation treatment. Will continue to dress her left breast wound with Medihoney and extrasorb dressings and/or ABD if needed for the heavy drainage she is experiencing. Will have her follow up in 2 weeks to assess the area and adjust treatment as necessary. Encouraged her to call with increased erythema, odor, drainage or fever or chills.
[2020-04-12 09:55] VITALS: BP 115/42; PULSE 77; RESP 20; TEMP 37.1
--- NOTE | 2020-04-12 16:11 | PCM.WC.PN ---
(1) Cancer of left female breast Status: Chronic Current Visit: Yes Qualifiers: Breast location: overlapping sites of breast Code(s): C50.912 - Malignant neoplasm of unspecified site of left female breast (2) Wound of left breast Status: Chronic Current Visit: Yes Qualifiers: Encounter type: subsequent encounter Code(s): S21.002A - Unspecified open wound of left breast, initial encounter Type of Wound Date of Service: 04/12/20 Chief Complaint: Invasive left breast carcinoma with skin ulceration History of Wound: Marilia Lino is a sweet 74 yo female who presents to the wound healing center for evaluation and treatment of her left breast from metastatic breast cancer with skin ulceration and break down. She is referred by Dr. Anand. She is seeking palliative treatment at this time and she plans on starting palliative radiation treatment this coming week and has not decided at this time whether she will undergo any additional chemotherapy. She reports that the skin is tender and irritated and does intermittently bleed and drains moderately at times. She has been applying essential oil frankincense and petroleum based ointment as well as using feminine hygiene products to manage the drainage. She denies any fever or chills, worsening erythema or odor. Progress of Wound: Marilia's left breast wound was evaluated and debrided today. She tolerated the dressings of [facility] well and has noted increased comfort. Drainage has been variable but heavy at times requiring twice daily changes but less bleeding. She denies increased odor, pain. - Physical Exam Vital Signs Temp Pulse Resp BP 98.7 F 77 20 H 115/42 L 04/12/20 09:55 04/12/20 09:55 04/12/20 09:55 04/12/20 09:55 General: Alert, Oriented x3, Cooperative, No apparent distress HEENT: Atraumatic, Normocephalic Oral: Moist Mucosa Skin: Ulcer/ Wound Wound Measurements and Assessment WC - Nurse 1 - General Ulcer Measurement Start: 03/29/20 09:34 Freq: Status: Active Protocol: Activity Type Activity Date Activity User E-Sign Co-Sign Detail Recorded Client Recorded Date Recorded By Document 04/12/20 09:55 DL [id number] 04/12/20 10:05 DL 04/12/20 09:55 Wound Center Nurse 1 [Ulcer Assessment] L breast -Current Size (cm) - Length 3.1 -Current Size (cm) - Width 8.4 -Current Size (cm) - Depth 0.1 -Total Square Cm 26.04 -Photo Taken No -Exudate Amt Small -Exudate Type Serosanguineous -Wound Margin Distinct, Outline Attached -Granulation Amt None Present (0 %) -Necrosis Amt Large (67-100%) -Necrotic Tissue Type Adherent Slough -Structure Exposed N/A -Texture (Suha-wound Skin Appearance) Scarring -Moisture (Suha-wound Skin Appearance No Abnormality ) -Color (Suha-wound Skin Appearance) Erythema,Rubor -Temperature (Suha-wound Skin No Abnormality Appearance) (Pt Warm) -Tenderness on Palpation (Suha-wound No Skin Appearance) -Ulcer Cleansing Rinsed/ Irrigated with Saline -Foul Odor after Cleansing No -Anesthetic Used 4% Lidocaine Solution - Nurse 2 - General Ulcer CM Notes Start: 03/29/20 09:34 Freq: Status: Active Protocol: Activity Type Activity Date Activity User E-Sign Co-Sign Detail Recorded Client Recorded Date Recorded By Document 04/12/20 10:34 DV [id number] 04/12/20 10:52 DV 04/12/20 10:34 Wound Center Nurse 2 [Procedure/Treatment] -Time 10:35 -Correct Patient Yes -Correct Side, Site, Position Yes -Correct Procedure Yes -Procedure Performed Yes -Type of Procedure Debridement -Clinical Debridement Subcutaneous -Post Debridement Size (cm) - Length 7.0 -Post Debridement Size (cm) - Width 11.0 -Post Debridement Size (cm) - Depth 0.1 -Total Square (cm) 77.00 -Wound/Ulcer Outcome Not Healed -Ulcer Cleansing Rinsed/ Irrigated with Saline -Foul Odor after Cleansing No -Bioengineered Tissue No -Bleeding Controlled with Pressure -Offloading No -Treatment Response Procedure Tolerated Well [See Physician Procedure note for Specifics] Pain Scale: 0-10 Numeric [Pain] -Is Patient Pain Free? Yes Psych/Mental Status: Normal Affect, Appropriate Debridement Note Post-Debridement Measurements/Treatment - Nurse 2 - General Ulcer CM Notes Start: 03/29/20 09:34 Freq: Status: Active Protocol: Activity Type Activity Date Activity User E-Sign Co-Sign Detail Recorded Client Recorded Date Recorded By Document 03/29/20 10:33 DV [id number] 03/29/20 10:41 DV Document 04/12/20 10:34 DV [id number] 04/12/20 10:52 DV 03/29/20 04/12/20 10:33 10:34 Wound Center Nurse 2 L breast -Time 10:34 10:35 -Correct Patient Yes Yes -Correct Side, Site, Position Yes Yes -Correct Procedure Yes Yes -Procedure Performed Yes Yes -Type of Procedure Debridement Debridement -Clinical Debridement Subcutaneous Subcutaneous -Post Debridement Size (cm) - Length 4.0 7.0 -Post Debridement Size (cm) - Width 10.0 11.0 -Post Debridement Size (cm) - Depth 0.1 0.1 -Total Square (cm) 40.00 77.00 -Wound/Ulcer Outcome Not Healed Not Healed -Ulcer Cleansing Rinsed/ Rinsed/ Irrigated with Irrigated with Saline Saline -Foul Odor after Cleansing No No -Bioengineered Tissue No No -Bleeding Controlled with Pressure Pressure -Offloading No No -Treatment Response Procedure Procedure Tolerated Well Tolerated Well Pain Scale: 0-10 Numeric Is Patient Pain Free? Yes Yes Wound debrided: left breast Laterality: Left Type of Debridement: Excisional debridement Anesthesia Used: 4% Lidocaine Solution Depth: Down to and including healthy tissue, in the subcutaneous layer Percentage of wound debrided: 100 Instrument Used: 5mm curette Tissue Removed: Yellow slough, devitalized tissue Severity: Fat Layer Exposed Amount of bleeding with debridement: Mild Bleeding Controlled with: Compression and gauze Patient tolerated procedure well Assessment/Plan Active Problems (Last Reviewed 04/10/20 @ 09:45 by Ria Coyne) Anemia (Chronic) Cancer of left female breast (Chronic) Wound of left breast (Chronic) Assessment: left breast cancer - metastatic with skin ulceration and breakdown Plan: Marilia's left breast wound was evaluated and debrided today. There is superficial skin breakdown throughout with subcutaneous tissue exposure in some areas. Some ulceration is developing as well as variable moderate to heavy drainage from the skin breakdown and radiation treatment. Will continue to dress her left breast wound with Medihoney and extrasorb dressings and/or ABD if needed for the heavy drainage she is experiencing. Will have her follow up in 2 weeks to assess the area and adjust treatment as necessary. Encouraged her to call with increased erythema, odor, drainage or fever or chills.
== END 2020-04-19 23:59 ==
LOC: WC 10:00
PROVIDERS: PCP Legal Medicine; Referring Provider Student in an Organized Health Care Education/Training Program; Visit Provider Family Medicine
DX: C50.812 Malignant neoplasm of overlapping sites of left female breast (principal); L98.491 Non-pressure chronic ulcer of skin of other sites limited to breakdown of skin; C79.9 Secondary malignant neoplasm of unspecified site
CPT/HCPCS: 11042; 11045; 97597; 97598

== ENCOUNTER 2020-04-14 11:34 | Inpatient (IN) | payer MEDICARE, OTHER, SELFPAY ==
[2020-01-25 13:05] VITALS: BMI 20.7
[2020-04-14] VITALS (7 sets, daily range): BP systolic 104–137; BP diastolic 33–60; PULSE 73–82; RESP 15–20; TEMP 36.4–37.3; O2SAT 96–100; BMI 19.9; BMI 20.1
--- NOTE | 2020-04-14 09:30 | US_ITS ---
STUDY: ABDOMINAL ULTRASOUND - four quadrants REASON FOR VISIT: Female, 74 years old ASCITES TECHNIQUE: Ultrasound evaluation of the four quadrants was performed with real-time and static perez-scale imaging. TECHNICAL QUALITY: Adequate. COMPARISON: None. FINDINGS: Sonographic examination of the four quadrants of the abdomen reveals a small amount of free fluid in the right upper quadrant. Not enough fluid for a safe paracentesis. US/Paracentesis with US IMPRESSION: Not enough fluid for a safe paracentesis. Electronically Signed: Dom Barrow, at 15:10 EDT , Service support ,
--- NOTE | 2020-04-14 12:16 | CT_ITS ---
STUDY: CT ABDOMEN AND PELVIS WITH CONTRAST REASON FOR EXAM: Female, 74 years old. PT STATED DIFFUSE ABDOM PAIN, BLOATING, HX BREAST CA, CURRENTLY RECEIVING CHEMO, ELEVATED WBC RADIATION DOSAGE (If Supplied By Facility): CTDIvol = ( 9.71 ) mGy, DLP = ( 470.84 ) mGycm TECHNIQUE: CT images were obtained from the dome of the diaphragm to the symphysis pubis without oral contrast. IV 75mL [id number]-300, ORAL was administered. Sagittal and coronal images were reconstructed. Individualized dose optimization techniques were used for this CT. COMPARISON: None. FINDINGS: Examination is moderately technically degraded due to suboptimal and low radiation dose resulting in severe elevation of image noise. Both spatial and contrast resolution at adversely affected and smaller lesions cannot be realistically seen. Some diagnostic information is available. There is probably atelectatic opacity in the left lower lobe with a small to moderate pleural effusion. There is right basilar atelectasis with small effusion. There is mild cardiomegaly. There are innumerable hepatic lesions, probably metastases. The liver is probably cirrhotic. There is moderate amount of ascites. Small bowel is mildly distended with fluid. There is diffuse mesenteric and omental edema and infiltration. It is not possible to separate pure edema from metastatic deposits. Adrenals are normal. Right kidney is located inferior in the abdomen and contain simple cysts. Pancreatic head is ill-defined and heterogeneously hypodense and possibly contains a lesion. There is intrapancreatic and extrahepatic biliary dilation. Bladder is normal. There are no osseous destructive, lytic or blastic lesions. There is mild spinal scoliosis and degeneration. CT/Abdomen/Pelvis WITH Contrast IMPRESSION: 1. Probable cirrhosis, moderate ascites. 2. Innumerable hepatic lesions, presumed metastases. 3. Incompletely characterized pancreatic head, refer to dedicated proper technique imaging to exclude possibility of pancreatic neoplasm. 4. Biliary dilation, presumably obstruction. Gastroneurology referral is advised. 5. 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 6. No intestinal obstruction. Electronically Signed: Carlos Trujillo, at 16:33 EDT Tel , Service support ,
--- NOTE | 2020-04-14 12:22 | ED.VIS.GI ---
History of Present Illness <JamesAlvaro - Last Filed: 04/14/20 15:23> Informant: Patient, Family - Abdominal Pain/Flank Pain Onset: Days - 3 days Context: Gradual Onset Timing: Continuous Quality: Sharp, Stabbing Location: Diffuse Current Severity: Severe Maximum Severity: Severe Worsened by: Food, Movement Relieved by: Nothing, Remaining Still - Nausea/Vomiting/Emesis GI Symptom: Nausea, Vomiting Onset: Today Quality: Nonbilious Severity: Severe Episodes: 1 - Diarrhea/Melena/Hematochezia GI Symptom: Diarrhea Onset: Days - 3 days Stool Quality: Loose, Watery Severity: Severe Associated Symptoms: Negative for: Dysuria, Frequency, Hematuria, Urgency Narrative: 74-year-old female who is currently on chemotherapy after completing radiation for metastatic breast cancer with metastasis to liver and bone presents to emergency department with progressively worsening abdominal pain and abdominal bloating and distention since her last chemotherapy about 4 days ago. She had one episode of vomiting this morning. No hematemesis or coffee-ground emesis. She has been having loose watery stool but no melena hematochezia. No fevers. No urinary symptoms. No chest pain or shortness of breath. She is not lightheaded or dizzy. No back pain. No leg pain or swelling. No falls injuries or traumas. Prior similar symptoms: Yes Recent Illness/Hospitalization: No <Henry Lange - Last Filed: 04/14/20 17:32> Chief Complaint: Abd Pain Past Medical History <RamirezAlvaro - Last Filed: 04/14/20 15:23> Prior records reviewed: Yes Past Medical History: - - Metastatic breast cancer with metastasis to liver and bone Surgical History: mastectomy - right breast Lives: With Family Smoking Status: Never smoker Alcohol: None Drugs: None <Henry Lange - Last Filed: 04/14/20 17:32> - Allergies and Home Meds Allergies/Adverse Reactions: Allergies No Known Allergies Allergy (Verified 04/14/20 11:41) Primary Care Physician: Quang Dwyer MD [Primary Care Provider] - Review of Systems All systems negative except as indicated General: Reports: Malaise. Denies: Chills, Fever, Sweats Eyes: Denies: Visual changes - bilaterally, Diplopia ENT: Denies: Rhinorrhea, Sore throat Cardiovascular: Denies: Chest pain, Palpitations Respiratory: Denies: Dyspnea, Cough, Dyspnea on exertion Gastrointestinal: Reports: Abdominal pain, Nausea, Vomiting, Diarrhea. Denies: Constipation, Melena, Hematochezia Genitourinary: Denies: Dysuria, Hematuria, Frequency Musculoskeletal: Denies: Back pain, Swelling, Extremity Pain Skin: Denies: Rash, Wounds Neurological: Denies: Headache, Weakness, Numbness <Henry Lange - Last Filed: 04/14/20 17:32> Physical Exam Vital Signs/Narrative: Vital Signs Temp Pulse Resp BP Pulse Ox 04/14/20 14:32 74 15 125/41 H 98 04/14/20 11:37 98.0 F 82 18 128/60 H 98 <Ramirez,Alvaro - Last Filed: 04/14/20 15:23> Vital Signs/Narrative: Vital Signs Temp Pulse Resp BP Pulse Ox 04/14/20 11:37 98.0 F 82 18 128/60 H 98 Inital Vital Signs reviewed: Yes General: Well nourished, Well developed, No Acute Distress Head: Normocephalic, Atraumatic Eyes: Perrl, EOMI ENT: Moist mucous membranes, No rhinorrhea Neck: Supple, Nontender Cardiovascular: Regular rate, Regular rhythm, No murmurs Respiratory: No distress, CTA bilaterally, Chest nontender Abdomen: Soft, Normal bowel sounds, Tender - Soft diffusely tender without focal tenderness and mildly distended without guarding or rebound tenderness noted. Negative for: Guarding, Rebound tenderness Back: Nontender, Normal Inspection Extremities: Nontender, Edema - Left upper extremity lymphedema, chronic not worse than baseline Skin: Normal color, No rash, - - Patient has ulceration around her left breast with some necrotic tissue however this is a chronic wound that has not been healing since she completed radiation therapy about 2 months ago and she states it does not appear worse than her baseline Neurological: Alert, Oriented x3, Cranial nerves II-XII grossly intact, Normal Strength, Normal Sensation Psychological: Normal affect, Normal Mood <Henry Lange - Last Filed: 04/14/20 17:32> Diagnostic/Tx/Re-eval - Medical Decision Making Patient presents with abdominal distention, abdominal discomfort and nausea and vomiting. She states her bowel movements have not been normal. She denies history of prior small bowel obstruction. She does have metastatic cancer. Patient does not appear well. She appears pale. Vital signs noted. Conjunctive is pale. Mucosa slightly dry. Heart is regular. Lungs revealed decreased breath sounds on the left. Abdomen is tympanitic. This may represent ascites. Because patient has significant tenderness with what appears to be peritoneal irritation pain a CT of the abdomen with p.o. and IV contrast. Patient's white count is 39.5 thousand most likely secondary to Neulasta in. Comprehensive metabolic panel is remarkable for a low albumin and total protein. Alkaline phosphatase is elevated. She does have history of liver mets and CAT scan does reveal liver mets as well as a left pleural effusion and ascites. Awaiting formal read by radiologist. <Ramirez,Alvaro - Last Filed: 04/14/20 15:23> Impressions Abdomen/Pelvis CT 04/14/20 12:16 IMPRESSION: 1. Probable cirrhosis, moderate ascites. 2. Innumerable hepatic lesions, presumed metastases. 3. Incompletely characterized pancreatic head, refer to dedicated proper technique imaging to exclude possibility of pancreatic neoplasm. 4. Biliary dilation, presumably obstruction. Gastroneurology referral is advised. 5. 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 6. No intestinal obstruction. Electronically Signed: Carlos Ronnie, at 16:33 EDT Tel , Service support , 04/14/20 12:16 Abdomen/Pelvis WITH Contrast [CT] Stat Laboratory Results 04/14/20 04/14/20 04/14/20 12:15 12:15 12:15 WBC 39.5 H* RBC 2.93 L Hgb 9.8 L Hct 27.9 L MCV 95.2 MCH 33.4 H MCHC 35.1 RDW Std Deviation 62.4 H RDW Coeff of Марина 18.5 H Plt Count 302 MPV 11.0 Neut % (Auto) Not Reportable Absolute Neuts (auto) 36.7 H Absolute Lymphs (auto) 0.00 L Total Counted 100 Neutrophils % (Manual) 92 H Band Neutrophils % 1 Monocytes % (Manual) 2 Metamyelocytes % 4 H Myelocytes % 1 H Nucleated RBCs/100 WBC 1 Diff Path Review May foll Toxic Granulation 1+ Dohle Bodies RARE Platelet Estimate ADEQUATE RBC Morphology N CYTIC Hypochromasia 1+ Anisocytosis RARE Sodium 137 Potassium 4.4 Chloride 107 Carbon Dioxide 23.0 Anion Gap 7 BUN 35 H Creatinine 0.88 Estim Creat Clear Calc 45.52 Est GFR (MDRD) Af Amer 81 Est GFR (MDRD) Non-Af 67 BUN/Creatinine Ratio 39.6 H Glucose 100 Lactic Acid Calcium 7.6 L Total Bilirubin 1.00 AST 101 H ALT 61 H Alkaline Phosphatase 700 H Total Protein 5.3 L Albumin 1.9 L Globulin 3.4 Albumin/Globulin Ratio 0.6 L Lipase 70 L Blood Type B POSITIVE Antibody Screen NEGATIVE 04/14/20 14:10 WBC RBC Hgb Hct MCV MCH MCHC RDW Std Deviation RDW Coeff of Марина Plt Count MPV Neut % (Auto) Absolute Neuts (auto) Absolute Lymphs (auto) Total Counted Neutrophils % (Manual) Band Neutrophils % Monocytes % (Manual) Metamyelocytes % Myelocytes % Nucleated RBCs/100 WBC Diff Path Review Toxic Granulation Dohle Bodies Platelet Estimate RBC Morphology Hypochromasia Anisocytosis Sodium Potassium Chloride Carbon Dioxide Anion Gap BUN Creatinine Estim Creat Clear Calc Est GFR (MDRD) Af Amer Est GFR (MDRD) Non-Af BUN/Creatinine Ratio Glucose Lactic Acid 1.7 Calcium Total Bilirubin AST ALT Alkaline Phosphatase Total Protein Albumin Globulin Albumin/Globulin Ratio Lipase Blood Type Antibody Screen - Medical Decision Making CT scan abdomen pelvis demonstrated worsening metastatic hepatic lesions with ascites. Diffuse mesenteric edema likely intraperitoneal carcinomatosis. Also demonstrated incompletely visualized pancreatic head unable to exclude pancreatic neoplasm. No obstruction is noted. Repeat exam the patient is can having intractable pain she is not tolerating by mouth at this time we do not feel comfortable discharging her home. We will admit her for further treatment of her pain and nausea. At this time there is no evidence of an acute surgical abdomen and we feel she is stable for the floor. <Henry Lange - Last Filed: 04/14/20 17:32> ED Disposition <Alvaro Ramirez - Last Filed: 04/14/20 15:23> <Henry Lange - Last Filed: 04/14/20 17:32> - Plan for ED Patient: Disposition: [facility] Diagnosis: Intractable abdominal pain, Nausea and vomiting, Metastatic breast cancer, Hepatic metastasis, Ascites, Intraperitoneal carcinomatosis Referrals: Quang Dwyer MD [Primary Care Provider] -
[2020-04-14] MEDS: Morphine 4 MG/ML Syringe IV ×2 (12:33→16:58)
[2020-04-14] MEDS: Ondansetron 4 MG/2 ML Vial IV ×3 (12:33→20:44)
[2020-04-14] MEDS: 0.9% Normal Saline 1,000 ML 1000 ML IV (12:33)
[2020-04-14 12:37] LABS: Hematocrit 27.9 % (37-47); Hemoglobin 9.8 g/dL (12.0-15.0); Mean Corp Hgb Conc 35.1 g/dL (32-36); Mean Corpuscular Hgb 33.4 pg (27.0-32.0); Mean Corpuscular Volume 95.2 fL (81-99); POSITIVE COUNT YES; POSITIVE DIFFERENTIAL YES; POSITIVE MORPHOLOGY YES; Platelet Count 302 K/mm3 (150-450); RBC Distribution Width CV 18.5 % (11.6-14.6); RBC Distribution Width SD 62.4 fl (35.1-43.9); Red Blood Count 2.93 M/mm3 (4.2-5.4)
[2020-04-14 12:43] LABS: Differential Indicated MANUAL DIFF; White Blood Count 39.5 K/mm3 (4.4-11.0)
[2020-04-14 12:53] LABS: ALB/GLOB Ratio 0.6 RATIO (0.9-2.4); AST(SGOT) 101 U/L (15-37); Alanine Aminotransfer ALT/SGPT 61 U/L (13-56); Albumin, Serum 1.9 g/dL (3.2-5.0); Alkaline Phosphatase 700 U/L (45-117); Anion Gap 7 (5-15); BUN 35 mg/dL (7-18); BUN/Creat Ratio 39.6 RATIO (10-20); Calcium,Total 7.6 mg/dL (8.5-10.1); Chloride 107 mmol/L (98-107); Creatinine, Serum 0.88 mg/dL (0.55-1.02); EST Glomerular Filtration Rate 67 mL/min (>60); Est Glom Filt Rate - Afr Amer 81 mL/min (>60); Estimated Creatinine Clearance 45.52 ml/min; Globulin 3.4 g/dL (2.2-4.2); Glucose 100 mg/dL (74-106); Lipase 70 U/L (73-393); Potassium 4.4 mmol/L (3.5-5.1); Protein, Total 5.3 g/dL (6.4-8.2); Sodium Level 137 mmol/L (136-145)
[2020-04-14 13:06] LABS: Dohle Bodies RARE; Metamyelocyte 4 % (0-1); Monocyte 2 % (0-10); Myelocyte 1 (0-0); Neutrophil-Band 1 % (0-5); Nucleated Red Bld Cells,Manual 1 % (0-5); Total Cells Counted 100 (MANUAL DIFF); Toxic Granulation 1+
[2020-04-14 13:07] LABS: Anisocytosis RARE; Hypochromasia 1+; Platelet Estimate ADEQUATE (ADEQ); Red Cell Morphology N CYTIC NORMAL (NORM C&C)
[2020-04-14 13:08] LABS: Absolute Neutrophil Count 36.7 X10^3/uL (2.0-7.7)
[2020-04-14 13:11] LABS: Neutrophil-Segmented 92 % (47-70)
[2020-04-14 14:38] LABS: Lactic Acid 1.7 mmol/L (0.4-1.9)
--- NOTE | 2020-04-14 16:59 | NURSING ---
MED SURG OBS PAINTSIL INTRACTABLE ABD PAIN, ASCITES, METS TO COLON AND LIVER
--- NOTE | 2020-04-14 17:10 | PCM.HP.STD ---
<Ray Cole - Last Filed: 04/14/20 17:10> Problem List (1) Abdominal pain Status: Acute (2) Cancer of left female breast Status: Chronic Qualifiers: Breast location: overlapping sites of breast (3) Regional lymph node metastasis present Status: Chronic (4) Bone metastases Status: Chronic (5) Liver metastases Status: Chronic (6) HTN (hypertension) Status: Chronic Qualifiers: Hypertension type: essential hypertension Qualified Code(s): I10 - Essential (primary) hypertension History of Present Illness Date of Admission: 04/14/20 Chief Complaint: abdominal pain/swelling The patient is a 74 year old F with pmhx notable for metastatic breast cancer with known mets to the liver and bone, who presents to the ER with abd pain and swelling. This began the day after her last chemo. She had chemo with Dr. Dolan on wednesday. she received neulasta. She began to have diffuse abdominal pain, some cramping, nausea and vomiting with loss of appetite, and watery diarrhea. She is very weak and tired. She states she can no longer tolerate chemotherapy and does not want to pursue any more therapy. She has intermittent swelling of the legs, and her abdomen is markedly bloated. In the ER her WBCs are 39k, no fever, and CT of the abdomen shows mets and ascites, with abnormal LFTs. [] Past Medical History Past Medical History (Chronic Problems): Chronic Problems (Last Reviewed 04/10/20 @ 09:45 by Ria Coyne) Anemia (Chronic) Cancer of left female breast (Chronic) Regional lymph node metastasis present (Chronic) Bone metastases (Chronic) Liver metastases (Chronic) HTN (hypertension) (Chronic) Wound of left breast (Chronic) Medical History: Medical History (Last Reviewed 04/10/20 @ 09:45 by Ria Coyen) Breast cancer C50.919 RIGHT IN 1986 AND LEFT 2019 HTN (hypertension) I10 Allergies No Known Allergies Allergy (Verified 04/14/20 11:41) Home Medications: Ambulatory Orders Medication Instructions Recorded Ibuprofen [Advil] 200 mg PO Q6H PRN PRN 02/02/20 Lidocaine/Prilocaine 1 applicatio TP DAILY PRN PRN 30 02/22/20 [Lidocaine-Prilocaine Cream] Days #1 tube Ondansetron [Zofran] 8 mg PO Q8H PRN PRN 10 Days #30 tab 02/22/20 Lactobacillus Combination No.8 1 ea PO 4X/DAY 02/28/20 [Adult Probiotic] Omega3,5,6,7,9 No.1/[place] Oil 2 ea PO BID 02/28/20 [Complete [place] Softgel] Turmeric Root Extract [Turmeric 750 mg PO DAILY 02/28/20 Curcumin] Ubidecarenone/Vit E/Vit E Mix 1 ea PO DAILY 02/28/20 [Co-Enzyme Q10 100 mg Softgel] Hydrocodone/Acetaminophen 1 ea PO Q6D 03/06/20 [Hydrocodon-Acetaminophen 5-325] Gabapentin [Neurontin] 300 mg PO BIDCM 04/10/20 Surgical History: Surgical History (Last Reviewed 04/10/20 @ 09:45 by Ria Coyne) H/O mastectomy Z90.10 RIGHT BREAST 1986 Surgical History: mastectomy - right breast Psychiatric History: No pertinent psych hx 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 Denies: Chills, Fever, Weight Change HEENT: Denies: Head Aches, Sinus Congestion, Sinus Drainage Cardiovascular: Reports: Edema. Denies: Chest Pain, Chest Pressure, Heaviness, Light Headedness, Palpitations, Paroxysmal Noc. Dyspnea Respiratory: Denies: Cough, Shortness of Breath, Shortness of breath at rest, Shortness of breath upon exertion, Sputum production Gastrointestinal: Reports: Abdominal Pain, Diarrhea, Nausea, Vomiting Genitourinary: Denies: Dysuria, Hematuria, Urgency Musculoskeletal: Denies: Joint Pain, Joint Tenderness Skin: Denies: Rash, Wounds Neurological: Denies: Numbness, Tingling, Focal weakness Psychiatric: Denies: Anxiety, Depression, Homicidal Ideations, Suicidal Ideations Hematologic/ Lymphatic: Denies: Easy Bruising, Easy Bleeding VTE Information - Inpt Only VTE Present on Admission: No VTE Mechan Device Prophylaxis: None VTE Pharm Prophylaxis ordered?: Yes Patient Problems: Active and Suspected Problems (Last Reviewed 04/10/20 @ 09:45 by Ria Coyne) Abdominal pain (Acute) Intractable abdominal pain (Acute) Nausea and vomiting (Acute) Metastatic breast cancer (Acute) Ascites (Acute) - Physical Exam Vitals/I&O's: Vital Signs Temp Pulse Resp BP Pulse Ox 98.6 F 73 18 125/36 H 98 04/14/20 17:01 04/14/20 17:01 04/14/20 17:01 04/14/20 17:01 04/14/20 17:01 Oxygen Delivery Method Room Air Weight: 110 lb Body Mass Index (BMI) 20.1 Intake and Output for Last 24 Hours 04/12/20 04/13/20 04/14/20 23:59 23:59 23:59 Intake Total 1000 / 1000 Balance 1000 / 1000 General: Alert, Oriented x3, Cooperative HEENT: Atraumatic, PERRLA, EOMI, Normocephalic Neck: Supple, No JVD, Negative Carotid Bruits Lungs: Clear to auscultation, Normal air movement Cardiovascular: Regular rate, No murmurs Abdomen: Soft, Hypoactive Bowel Sounds, Distended, Tender - worse RUQ and LUQ Extremities: No edema, Capillary Refill Less than 3 Seconds Skin: No rashes, No breakdown Musculoskeletal: No Tenderness to Palpation of Joints or Extremities Neurological: Cranial nerves II-XII grossly intact Psych/Mental Status: Normal Affect, Appropriate, Alert and oriented to time, place, person, mood and affect Laboratory Results 04/14/20 12:15: WBC 39.5 H*, RBC 2.93 L, Hgb 9.8 L, Hct 27.9 L, MCV 95.2, MCH 33.4 H, MCHC 35.1, RDW Std Deviation 62.4 H, RDW Coeff of Марина 18.5 H, Plt Count 302, MPV 11.0, Neut % (Auto) Not Reportable, Absolute Neuts (auto) 36.7 H, Absolute Lymphs (auto) 0.00 L, Total Counted 100, Neutrophils % (Manual) 92 H, Band Neutrophils % 1, Monocytes % (Manual) 2, Metamyelocytes % 4 H, Myelocytes % 1 H, Nucleated RBCs/100 WBC 1, Diff Path Review May foll, Toxic Granulation 1+, Dohle Bodies RARE, Platelet Estimate ADEQUATE, RBC Morphology N CYTIC, Hypochromasia 1+, Anisocytosis RARE 04/14/20 12:15: Sodium 137, Potassium 4.4, Chloride 107, Carbon Dioxide 23.0, Anion Gap 7, BUN 35 H, Creatinine 0.88, Estim Creat Clear Calc 45.52, Est GFR (MDRD) Af Amer 81, Est GFR (MDRD) Non-Af 67, BUN/Creatinine Ratio 39.6 H, Glucose 100, Calcium 7.6 L, Total Bilirubin 1.00, AST 101 H, ALT 61 H, Alkaline Phosphatase 700 H, Total Protein 5.3 L, Albumin 1.9 L, Globulin 3.4, Albumin/Globulin Ratio 0.6 L, Lipase 70 L 04/14/20 12:15: Blood Type B POSITIVE, Antibody Screen NEGATIVE 04/14/20 14:10: Lactic Acid 1.7 Assessment/Plan All Active Problems (Last Reviewed 04/10/20 @ 09:45 by Ria Coyne) Abdominal pain (Acute) Intractable abdominal pain (Acute) Nausea and vomiting (Acute) Metastatic breast cancer (Acute) Ascites (Acute) Encounter for education (Resolved) 1. Abdominal pain and ascites 2/2 metastatic breast cancer - liver and bone mets. Also due to chemo reaction. Last chemo Wednesday. CT with mets and ascites. Belly is distended. WBC 39k, no fever. Pt did receive neulasta. + Vomiting and diarrhea. Consider gastroenteroly or C diff with crampy abd pain. Check enteric panel/c diff. Supportive care with pain meds/antiemetics. LFTs are elevated but c/w prior. Consider paracentesis in the AM. 2. Anemia - normocytic. trend. DVT ppx: lovenox DC planning: Pt is hospice appropriate. She is no longer interested in chemo, however even if she does pursue more chemo she would still be hospice appropriate as this will be terminal regardless. Will discuss palliative/hospice referral in the AM. This patient was seen by Ray Cole PA-C under the supervision of Dr. Kitchen. <Noelle Kitchen - Last Filed: 04/14/20 18:35> History of Present Illness The patient is a 74 year old F [] Past Medical History Medical History: Medical History (Last Reviewed 04/10/20 @ 09:45 by Ria Coyne) Breast cancer C50.919 RIGHT IN 1986 AND LEFT 2019 HTN (hypertension) I10 Allergies No Known Allergies Allergy (Verified 04/14/20 11:41) Surgical History: Surgical History (Last Reviewed 04/10/20 @ 09:45 by Ria Coyne) H/O mastectomy Z90.10 RIGHT BREAST 1986 - *Family History Maternal Family History: Family History (Last Reviewed 04/14/20 @ 17:16 by MEME Marrero) Mother Breast cancer Brother Prostate cancer Paternal Family History: Family History (Last Reviewed 04/14/20 @ 17:16 by MEME Marrero) Mother Breast cancer Brother Prostate cancer - Physical Exam Vitals/I&O's: Vital Signs Temp Pulse Resp BP Pulse Ox 98.6 F 73 18 125/36 H 98 04/14/20 17:01 04/14/20 17:01 04/14/20 17:01 04/14/20 17:01 04/14/20 17:01 Oxygen Delivery Method Room Air Weight: 49.895 kg Body Mass Index (BMI) 20.1 Intake and Output for Last 24 Hours 04/12/20 04/13/20 04/14/20 23:59 23:59 23:59 Intake Total 1000 / 1000 Balance 1000 / 1000 Laboratory Results 04/14/20 12:15: WBC 39.5 H*, RBC 2.93 L, Hgb 9.8 L, Hct 27.9 L, MCV 95.2, MCH 33.4 H, MCHC 35.1, RDW Std Deviation 62.4 H, RDW Coeff of Марина 18.5 H, Plt Count 302, MPV 11.0, Neut % (Auto) Not Reportable, Absolute Neuts (auto) 36.7 H, Absolute Lymphs (auto) 0.00 L, Total Counted 100, Neutrophils % (Manual) 92 H, Band Neutrophils % 1, Monocytes % (Manual) 2, Metamyelocytes % 4 H, Myelocytes % 1 H, Nucleated RBCs/100 WBC 1, Diff Path Review May foll, Toxic Granulation 1+, Dohle Bodies RARE, Platelet Estimate ADEQUATE, RBC Morphology N CYTIC, Hypochromasia 1+, Anisocytosis RARE 04/14/20 12:15: Sodium 137, Potassium 4.4, Chloride 107, Carbon Dioxide 23.0, Anion Gap 7, BUN 35 H, Creatinine 0.88, Estim Creat Clear Calc 45.52, Est GFR (MDRD) Af Amer 81, Est GFR (MDRD) Non-Af 67, BUN/Creatinine Ratio 39.6 H, Glucose 100, Calcium 7.6 L, Total Bilirubin 1.00, AST 101 H, ALT 61 H, Alkaline Phosphatase 700 H, Total Protein 5.3 L, Albumin 1.9 L, Globulin 3.4, Albumin/Globulin Ratio 0.6 L, Lipase 70 L 04/14/20 12:15: Blood Type B POSITIVE, Antibody Screen NEGATIVE 04/14/20 14:10: Lactic Acid 1.7 Assessment/Plan This patient was seen in conjunction with MEME Marrero. I have independently interviewed and examined the patient and reviewed pertinent historical, laboratory, and other data. Please refer to MEME Marrero note for his patient's presentation, findings, and recommendations. I have reviewed and his note and concur with his documentation 74-year-old female with past medical history of right breast CA status post mastectomy, metastatic left breast CA with local regional malignant ulceration and involvement of the chest wall with liver and bone metastases status post radiation treatment, currently on chemotherapy. Patient follows with Dr. Dolan in the outpatient. Presents with bilateral leg swelling as well as abdominal distention ongoing for weeks, worsened over the last 1 week. She denied any fever or chills. She has mild abdominal tenderness. She denied any diarrhea. Physical Exam: Gen: Looks in some discomfort, not pale, not jaundiced CVS: HS I +II, regular, no murmurs RESP: Diminished at lung bases GI: Distended, BS present and normal, soft, nontender, no palpable organs EXT:No edema ASSESSMENT: 1. Abdominal pain likely secondary to metastatic breast cancer 2. Ascites, ?new-onset 3. Metastatic breast CA 4. Anemia 5. Leucocytosis, no signs of sepsis 6. Elevated liver enzymes secondary to metastatic liver disease Plan: Continue with gentle IV fluids Supportive care, pain control Ultrasound-guided paracentesis in a.m. Oncology consult Inpatient E&M: [id number] Init Hosp L3
[2020-04-14] MEDS: Gabapentin 300 MG Capsule PO (22:04)
[2020-04-14] MEDS: HYDROcodone Bitartrate/Apap 5/325 Tablet PO (23:31)
[2020-04-15 05:17] VITALS: BP 126/52; PULSE 87; RESP 18; TEMP 36.4; O2SAT 97
[2020-04-15] MEDS: HYDROcodone Bitartrate/Apap 5/325 Tablet PO ×3 (05:28→17:45)
[2020-04-15 05:48] LABS: Hematocrit 28.9 % (37-47); Hemoglobin 10.3 g/dL (12.0-15.0); Mean Corp Hgb Conc 35.6 g/dL (32-36); Mean Corpuscular Hgb 34.2 pg (27.0-32.0); Mean Platelet Vol. 11.1 fl (6.2-12.0); POSITIVE COUNT YES; POSITIVE DIFFERENTIAL YES; POSITIVE MORPHOLOGY YES; Platelet Count 309 K/mm3 (150-450); RBC Distribution Width CV 19.5 % (11.6-14.6); RBC Distribution Width SD 65.2 fl (35.1-43.9); Red Blood Count 3.01 M/mm3 (4.2-5.4)
[2020-04-15 06:07] LABS: ALB/GLOB Ratio 0.4 RATIO (0.9-2.4); AST(SGOT) 93 U/L (15-37); Alanine Aminotransfer ALT/SGPT 56 U/L (13-56); Albumin, Serum 1.6 g/dL (3.2-5.0); Alkaline Phosphatase 699 U/L (45-117); Anion Gap 10 (5-15); BUN 35 mg/dL (7-18); BUN/Creat Ratio 32.7 RATIO (10-20); Calcium,Total 6.8 mg/dL (8.5-10.1); Chloride 106 mmol/L (98-107); Creatinine, Serum 1.07 mg/dL (0.55-1.02); EST Glomerular Filtration Rate 54 mL/min (>60); Est Glom Filt Rate - Afr Amer 65 mL/min (>60); Estimated Creatinine Clearance 37.43 ml/min; Globulin 3.6 g/dL (2.2-4.2); Glucose 81 mg/dL (74-106); LDH 518 U/L (84-246); Potassium 4.6 mmol/L (3.5-5.1); Protein, Total 5.2 g/dL (6.4-8.2); Sodium Level 135 mmol/L (136-145)
[2020-04-15 06:19] LABS: Differential Indicated MANUAL DIFF
[2020-04-15 06:57] LABS: Lymphocyte 7 % (19-41); Metamyelocyte 1 % (0-1); Monocyte 14 % (0-10); Neutrophil-Band 7 % (0-5); Neutrophil-Segmented 78 % (47-70); Total Cells Counted 100 (MANUAL DIFF)
[2020-04-15 06:58] LABS: Absolute Lymphocyte Count 3.43 X10^3/uL (0.83-4.51); Absolute Neutrophil Count 41.7 X10^3/uL (2.0-7.7); Lymphocyte # 3.43 X10^3/ul (4.0); Neutrophil # 41.65 X10^3/uL (2.7-7.7); Platelet Estimate ADEQUATE (ADEQ); Red Cell Morphology NORM C+C NORMAL (NORM C&C)
[2020-04-15 08:27] LABS: International Normalized Ratio 1.1; Prothrombin Time (Protime)PT. 14.1 SECONDS (11.7-14.9)
[2020-04-15 08:34] VITALS: BP 112/39; PULSE 77; RESP 18; TEMP 37.1; O2SAT 98
[2020-04-15 08:59] VITALS: BP 127/48; PULSE 76; RESP 18; TEMP 36.8; O2SAT 96
--- NOTE | 2020-04-15 09:45 | CASEMGMT ---
RN CM Face to Face with patient for initial transition planning/care coordination assessment. RN CM introduced self and role at [facility]. Patient lying in bed, alert and oriented. Patient willing to participate in assessment and is able to answer all questions appropriately. Care providers, pharmacy, and demographics verified. Patient wishes to discharge home, denies need for home health at this time. Patient states she has no further needs or concerns at this time. CM to follow for discharge planning needs that may arise. PCP: Yuliya Specialists: Magdaleno oncologist Preferred [facility]acy: [facility] Insurance: [facility] Prescription Benefit: yes Living Will/HPOA: yes, Eligio Lino LNOK: Living Arrangements: Patient lives with in 2 story home with bed and bath on first floor. 2 steps and railing to enter the home. Patient states she is independent at home. Transportation: DME/HHC: Patient denies DME or HHC Disposition Plan: Patient to discharge home with family support and follow-up plans in place. Courtney DANIELN, RN, CM
[2020-04-15] MEDS: Gabapentin 300 MG Capsule PO ×2 (10:24→21:29)
[2020-04-15] MEDS: Spironolactone 25 MG Tablet PO (10:25)
--- NOTE | 2020-04-15 10:41 | CASEMGMT ---
Addendum entered by Courtney Marshall 04/15/20 11:50: SW updated that pt's has been in contact with [facility] and will be following up with [facility] at discharge. Original Note: Social Work Note SW updated that pt has Hospice/Palliative Meeting today at 11:00am with [facility]. SW then updated that [facility] wanted to know if they still need to meet with pt as pt lives in [place] and they don't provide services to that area. SW asked that [facility] still meet with pt and review services and then can make recommendations on services in pt's area. [facility] to meet with pt. Courtney Marshall AIRFRAME AND POWER PLANT MECHANIC, CRIME SCENE TECHNICIAN
--- NOTE | 2020-04-15 11:52 | PN_ITS ---
Patient Problems: Active and Suspected Problems (Last Reviewed 04/10/20 @ 09:45 by Ria Coyne) Abdominal pain (Acute) Intractable abdominal pain (Acute) Nausea and vomiting (Acute) Metastatic breast cancer (Acute) Ascites (Acute) Reason for Visit: Abd pain, diarrhea Subjective: Ongoing liquid diarrhea. Ongoing distention. Not enough fluid to tap this AM. No fever/chills. Mild abd pain. some nausea but no vomiting. tolerated breakfast. Vitals/I&O's: Vital Signs Temp Pulse Resp BP Pulse Ox 98.2 F 76 18 127/48 H 98 04/15/20 08:59 04/15/20 08:59 04/15/20 08:59 04/15/20 08:59 04/15/20 08:34 Oxygen Delivery Method [1 ( Room Air Initial Baseline)] Oxygen Delivery Method Room Air Weight: 110 lb 7.225 oz Body Mass Index (BMI) 20.1 Intake and Output for Last 24 Hours 04/13/20 04/14/20 04/15/20 23:59 23:59 23:59 Intake Total 1000 / 1000 Output Total 500 / 500 Balance 1000 / 1000 -500 / -500 General: Alert, Oriented x3, Cooperative HEENT: Atraumatic, PERRLA, EOMI, Normocephalic Neck: Supple, No JVD, Negative Carotid Bruits Lungs: Clear to auscultation, Normal air movement Cardiovascular: Regular rate, No murmurs Abdomen: Bowel Sounds Present, Soft, Non Tender, Distended Extremities: No edema, Capillary Refill Less than 3 Seconds Skin: No rashes, No breakdown Musculoskeletal: No Tenderness to Palpation of Joints or Extremities Neurological: Cranial nerves II-XII grossly intact Psych/Mental Status: Normal Affect, Appropriate, Alert and oriented to time, place, person, mood and affect Laboratory Results 04/14/20 12:15: WBC 39.5 H*, RBC 2.93 L, Hgb 9.8 L, Hct 27.9 L, MCV 95.2, MCH 33.4 H, MCHC 35.1, RDW Std Deviation 62.4 H, RDW Coeff of Марина 18.5 H, Plt Count 302, MPV 11.0, Neut % (Auto) Not Reportable, Absolute Neuts (auto) 36.7 H, Absolute Lymphs (auto) 0.00 L, Total Counted 100, Neutrophils % (Manual) 92 H, Band Neutrophils % 1, Monocytes % (Manual) 2, Metamyelocytes % 4 H, Myelocytes % 1 H, Nucleated RBCs/100 WBC 1, Diff Path Review January reuben, Toxic Granulation 1+, Dohle Bodies RARE, Platelet Estimate ADEQUATE, RBC Morphology N CYTIC, Hypochromasia 1+, Anisocytosis RARE 04/14/20 12:15: Sodium 137, Potassium 4.4, Chloride 107, Carbon Dioxide 23.0, Anion Gap 7, BUN 35 H, Creatinine 0.88, Estim Creat Clear Calc 45.52, Est GFR (MDRD) Af Amer 81, Est GFR (MDRD) Non-Af 67, BUN/Creatinine Ratio 39.6 H, Glucose 100, Calcium 7.6 L, Total Bilirubin 1.00, AST 101 H, ALT 61 H, Alkaline Phosphatase 700 H, Total Protein 5.3 L, Albumin 1.9 L, Globulin 3.4, Albumin/Globulin Ratio 0.6 L, Lipase 70 L 04/14/20 12:15: Blood Type B POSITIVE, Antibody Screen NEGATIVE 04/14/20 14:10: Lactic Acid 1.7 04/15/20 05:30: WBC 49.0 H*, RBC 3.01 L, Hgb 10.3 L, Hct 28.9 L, MCV 96.0, MCH 34.2 H, MCHC 35.6, RDW Std Deviation 65.2 H, RDW Coeff of Марина 19.5 H, Plt Count 309, MPV 11.1, Neut % (Auto) Not Reportable, Absolute Neuts (auto) 41.7 H, Absolute Lymphs (auto) 3.43, Total Counted 100, Neutrophils % (Manual) 78 H, Band Neutrophils % 7 H, Lymphocytes % (Manual) 7 L, Monocytes % (Manual) 14 H, Metamyelocytes % 1, Differential Comment , Diff Path Review May reuben, Platelet Estimate ADEQUATE, RBC Morphology NORM C+C 04/15/20 05:30: Sodium 135 L, Potassium 4.6, Chloride 106, Carbon Dioxide 19.0 L , Anion Gap 10, BUN 35 H, Creatinine 1.07 H, Estim Creat Clear Calc 37.43, Est GFR (MDRD) Af Amer 65, Est GFR (MDRD) Non-Af 54 L, BUN/Creatinine Ratio 32.7 H, Glucose 81, Calcium 6.8 L, Total Bilirubin 0.90, AST 93 H, ALT 56, Alkaline Phosphatase 699 H, Lactate Dehydrogenase 518 H, Total Protein 5.2 L, Albumin 1.6 L, Globulin 3.6, Albumin/Globulin Ratio 0.4 L 04/15/20 07:46: PT 14.1, INR 1.1 Current Medications Hydrocodone Bitart/Acetaminophen (Florien 5mg-325mg) 1 tablet PO Q6 [facility] Last Admin: 04/15/20 05:28 Dose: 1 tablet Documented by: Enoxaparin Sodium (Lovenox) 40 mg SC DAILY [facility] Gabapentin (Neurontin) 300 mg PO BID [facility] Last Admin: 04/15/20 10:24 Dose: 300 mg Documented by: Morphine Sulfate () 4 mg IV Q3H PRN PRN PRN Reason: Pain Score 6-10/10 Nutritional Formula (Lactose Free) (Ensure Enlive) 120 ml PO 4X/DAY [facility] Last Admin: 04/15/20 10:24 Dose: Not Given Documented by: Ondansetron HCl (Zofran) 4 mg IV Q8H PRN PRN PRN Reason: NAUSEA/VOMITING Last Admin: 04/14/20 20:44 Dose: 4 mg Documented by: Spironolactone (Aldactone) 25 mg PO DAILY [facility] Last Admin: 04/15/20 10:25 Dose: 25 mg Documented by: STROKE Vital Signs/Narrative: Vital Signs Temp Temp Pulse Pulse Resp Resp BP 04/15/20 08:59 98.2 F 76 18 04/15/20 08:34 98.7 F 77 18 112/39 L BP Pulse Ox 04/15/20 08:59 127/48 H 04/15/20 08:34 98 Medical Necessity - Tobacco Use Smoking Status: Never smoker Tobacco Use: Non-smoker Assessment/Plan All Active Problems (Last Reviewed 04/10/20 @ 09:45 by Ria Coyne) Abdominal pain (Acute) Intractable abdominal pain (Acute) Nausea and vomiting (Acute) Metastatic breast cancer (Acute) Ascites (Acute) Encounter for education (Resolved) 1. Abdominal pain and ascites 2/2 metastatic breast cancer - liver and bone mets. Also due to chemo reaction. Last chemo Wednesday. CT with mets and ascites. Belly is distended but not enough fluid to tap. WBC 49k. no fever. Pt did receive neulasta. + Nausea and diarrhea. Consider gastroenteroly or C diff with crampy abd pain. Check enteric panel/c diff. Supportive care with pain meds/antiemetics. LFTs are elevated but c/w prior. 2. Anemia - normocytic. improved. DVT ppx: lovenox DC planning: hospice/palliative to meet with pt today This patient was seen by Ray Cole PA-C under the supervision of Dr. Pugh
[2020-04-15 12:46] LABS: Pathologist Review Reviewed
[2020-04-15 12:46] LABS: Pathologist Review Reviewed
--- NOTE | 2020-04-15 16:50 | ONC.CONS.INP ---
Consult Referring Physician: Dr. Emiliana Kitchen Consult Results: Metastatic Breast cancer, Ascites, Peritoneal metastases, vomiting, Diarrhea. Subjective Date of Service:: 04/15/20 Chief Complaint: ABD PAIN History of Present Illness: 74-year-old woman with metastatic breast cancer with known mets to liver and bones, currently on chemotherapy with Taxotere which was started on February 28, 2020. Last dose was on 04/10/2020. Since the last dose, she has been feeling sick, throwing up, associated with the abdominal pain and loose stools. She denies fever. [facility]2020 with abdominal pain. She continues to vomit. Past Medical History: Chronic Problems (Last Reviewed 04/10/20 @ 09:45 by Ria Coyne) Metastatic breast cancer (Chronic) Ascites (Chronic) Peritoneal metastases (Chronic) Anemia (Chronic) Cancer of left female breast (Chronic) Regional lymph node metastasis present (Chronic) Bone metastases (Chronic) Liver metastases (Chronic) HTN (hypertension) (Chronic) Wound of left breast (Chronic) Past Medical/Surgical History: Past Medical History - Most Recent Inpatient Visit Past Medical History Start: 04/14/20 18:31 Text: Status: Complete Freq: ONCE Protocol: Document 04/14/20 18:31 [facility] (Rec: 04/14/20 19:19 [facility] [id number]) BMI Required to complete PMH What is Patient's BMI 20.1 Past Medical History Unable History Recalled No Query Text:Pt Unable/Family Not Present Neurologic Medical History Hx Stroke/TIA No Hx Dementia/Alzheimer's No Hx Parkinson's Disease No Hx Seizures No Hx Multiple Sclerosis No Hx Migraines No Cardiac Medical History VTE Present on Admission No Hx of Deep Vein Thrombosis/VTE/PE No Hx Hypertension No Hx Chest Pain/Angina No Hx Heart Attack No Hx Cardiac Surgery/Stents/Etc. No Hx Heart Failure No Hx Pacemaker/AICD No Hx Irregular Heartbeat and/or Afib Yes: IN THE PAST Hx Anticoagulant Therapy No Query Text:(Coumadin, Aspirin, Plavix, Xarelto, etc.) Respiratory Medical History Hx COPD No Hx Emphysema No Hx Smoking No Smoking Status Never smoker Tobacco Use Non-smoker Hx Tobacco Use in last 12 months No Hx Sleep Apnea No Do you snore loudly (louder than talking No or can be heard through closed doors)? Do you often feel tired/ fatigued/ No sleepy during daytime? Has anyone observed you stop breathing No during sleep? STOP Results Negative GI Medical History Hx Ulcer No Hx Hepatitis No Hx Cirrhosis No Hx GI Bleed No Hx Unplanned Weight Loss Yes: CA AND CHEMO Genitourinary Medical History Indwelling Catheter in Place on Arrival/ No Admission Hx Renal Disease No Hx Dialysis No Musculoskeletal History Hx Arthritis Yes: A LITTLE Hx Rheumatoid Arthritis No Endocrine Medical History Hx Diabetes No Hx Thyroid Disease No Hematologic Medical History Hx of Blood Transfusion Yes Hx of Transfusion in last 3 Months No Ever experience any problems with No transfusion(s)? Hx of Preganancy in last 3 Months No Nurse Filling Out Transfusion & ACOEY Questions: Date: 04/14/20 Time: 19:17 Psycho/Social Medical History Hx Depression No Hx Anxiety Yes: CA- NO MEDS Hx Behavior Disorder No Hx Alcohol Use No Hx Substance Use No Other Medical History Hx Blood Disorders No Hx Anemia Yes Hx Cancer Yes: breast ca with mets liver , bone Hx Drug Resistant Organism No Wound/Pressure Injury Present on Arrival No /Admission Query Text:If yes, chart assessment in Shift/Clinical Findings Central Line/PICC/VAD Present on Arrival Yes /Admission Antibiotics within last 7 days? No Methicillin Resistant Staphylococcus aureus Screening Active MRSA No Risk for Readmission Number of Risk Factors 6 At Risk for Readmission Patient is At Risk For Readmission Patient is eligible for Call Back Y Past Medical History (Last Reviewed 04/10/20 @ 09:45 by Ria Coyne) Breast cancer (Acute) HTN (hypertension) (Chronic) Past Surgical History (Last Reviewed 04/10/20 @ 09:45 by Ria Coyne) H/O mastectomy (Acute) Maternal Family History: Family History (Last Reviewed 04/14/20 @ 17:16 by MEME Marrero) Mother Breast cancer Brother Prostate cancer Paternal Family History: Family History (Last Reviewed 04/14/20 @ 17:16 by MEME Marrero) Mother Breast cancer Brother Prostate cancer Family History: - - cirrhosis - Social History Lives: With Family Smoking Status: Never smoker Tobacco Use: Non-smoker Alcohol: None Drugs: None Allergies/Adverse Reactions: Allergy/AdvReac Type Severity Reaction Status Date / Time No Known Allergies Allergy Verified 04/14/20 11:41 Review of Systems Constitutional:: Reports: Fatigue. Denies: Fever, Sweats Cardiovascular:: Denies: Chest pain, Palpitations, Dyspnea on exertion, Orthopnea, PND, Shortness of breath Respiratory: Denies: Cough, Hemoptysis, Shortness of Breath, Wheezing Gastrointestinal:: Reports: Abdominal pain, Vomiting, Diarrhea Genitourinary: Denies: Dysuria, Hematuria, 15, Flank pain Musculoskeletal:: Denies: Back pain, Myalgia, Arthralgia Skin: Reports: Wounds - L breast area. Neurological:: Denies: Headache, Dizziness, Visual changes, Tinnitus, Hearing loss Psychiatric: Denies: Anxiety, Depression, Homicidal Ideations, Suicidal Ideations Vital Signs Temperature 98.2 F 04/15/20 08:59 Temperature Source Oral 04/15/20 08:34 Pulse Rate 76 04/15/20 08:59 Pulse Strength Normal (2+) 04/15/20 09:46 Respiratory Rate 18 04/15/20 08:59 Respiratory Effort 04/15/20 08:35 Respiratory Depth Normal 04/15/20 08:35 Respiratory Pattern Normal 04/15/20 08:35 Blood Pressure 127/48 H 04/15/20 08:59 Blood Pressure Mean 63 04/15/20 08:34 Blood Pressure Source Monitor 04/15/20 08:34 Blood Pressure Position Supine 04/15/20 08:34 Blood Pressure Location Right Arm 04/15/20 08:34 Pulse Ox 98 04/15/20 08:34 Oxygen Delivery Method Room Air 04/15/20 08:59 - Physical Exam General: Alert, Oriented x3, No apparent distress, - - feeling sick. HEENT: Atraumatic, PERRLA, EOMI, Normocephalic Oropharynx:: Dry mucosa Neck:: Supple, Trachea midline. Negative for: JVD, bilateral Cardiac:: Regular rate, Regular rhythm, Normal S1, Normal S2. Negative for: Murmur Lungs: Clear to auscultation, Excusion symmetrical. Negative for: Rhonchi, Wheezes Abdomen:: Distended, Rigid Extremities:: Edema - L upper extremity. Neurological: Cranial nerves II-XII grossly intact Skin:: Lesions - covered ulcer L breast area. Lymphatics:: Negative for: Cervical lymphadenopathy, Supraclavicular lymphadenopathy, Axillary lymphadenopathy Laboratory Data: Laboratory Tests 04/15/20 04/15/20 04/15/20 Range/Units 07:46 05:30 05:30 WBC 49.0 H* (4.4-11.0) K/mm3 RBC 3.01 L (4.2-5.4) M/mm3 Hgb 10.3 L (12.0-15.0) g/dL Hct 28.9 L (37-47) % MCV 96.0 (81-99) fL MCH 34.2 H (27.0-32.0) pg MCHC 35.6 (32-36) g/dL RDW Std Deviation 65.2 H (35.1-43.9) fl RDW Coeff of Марина 19.5 H (11.6-14.6) % Plt Count 309 (150-450) K/mm3 MPV 11.1 (6.2-12.0) fl Neut % (Auto) Not Reportable Absolute Neuts (auto) 41.7 H (2.0-7.7) X10^3/uL Absolute Lymphs (auto) 3.43 (0.83-4.51) X10^3/uL Total Counted 100 (MANUAL DIFF) Neutrophils % (Manual) 78 H (47-70) % Band Neutrophils % 7 H (0-5) % Lymphocytes % (Manual) 7 L (19-41) % Monocytes % (Manual) 14 H (0-10) % Metamyelocytes % 1 (0-1) % Differential Comment Diff Path Review Reviewed Platelet Estimate ADEQUATE (ADEQ) RBC Morphology NORM C+C (NORM C&C) NORMAL PT 14.1 (11.7-14.9) SECONDS INR 1.1 Sodium 135 L (136-145) mmol/L Potassium 4.6 (3.5-5.1) mmol/L Chloride 106 (98-107) mmol/L Carbon Dioxide 19.0 L (21.0-32.0) mmol/L Anion Gap 10 (5-15) BUN 35 H (7-18) mg/dL Creatinine 1.07 H (0.55-1.02) mg/dL Estim Creat Clear Calc 37.43 ml/min Est GFR (MDRD) Af Amer 65 (>60) mL/min Est GFR (MDRD) Non-Af 54 L (>60) mL/min BUN/Creatinine Ratio 32.7 H (10-20) RATIO Glucose 81 (74-106) mg/dL Calcium 6.8 L (8.5-10.1) mg/dL Total Bilirubin 0.90 (0.20-1.00) mg/dL AST 93 H (15-37) U/L ALT 56 (13-56) U/L Alkaline Phosphatase 699 H (45-117) U/L Lactate Dehydrogenase 518 H (84-246) U/L Total Protein 5.2 L (6.4-8.2) g/dL Albumin 1.6 L (3.2-5.0) g/dL Globulin 3.6 (2.2-4.2) g/dL Albumin/Globulin Ratio 0.4 L (0.9-2.4) RATIO 07// Range/Units 12:15 WBC (4.4-11.0) K/mm3 RBC (4.2-5.4) M/mm3 Hgb (12.0-15.0) g/dL Hct (37-47) % MCV (81-99) fL MCH (27.0-32.0) pg MCHC (32-36) g/dL RDW Std Deviation (35.1-43.9) fl RDW Coeff of Марина (11.6-14.6) % Plt Count (150-450) K/mm3 MPV (6.2-12.0) fl Neut % (Auto) Absolute Neuts (auto) (2.0-7.7) X10^3/uL Absolute Lymphs (auto) (0.83-4.51) X10^3/uL Total Counted (MANUAL DIFF) Neutrophils % (Manual) (47-70) % Band Neutrophils % (0-5) % Lymphocytes % (Manual) (19-41) % Monocytes % (Manual) (0-10) % Metamyelocytes % (0-1) % Differential Comment Diff Path Review Reviewed Platelet Estimate (ADEQ) RBC Morphology (NORM C&C) NORMAL PT (11.7-14.9) SECONDS INR Sodium (136-145) mmol/L Potassium (3.5-5.1) mmol/L Chloride (98-107) mmol/L Carbon Dioxide (21.0-32.0) mmol/L Anion Gap (5-15) BUN (7-18) mg/dL Creatinine (0.55-1.02) mg/dL Estim Creat Clear Calc ml/min Est GFR (MDRD) Af Amer (>60) mL/min Est GFR (MDRD) Non-Af (>60) mL/min BUN/Creatinine Ratio (10-20) RATIO Glucose (74-106) mg/dL Calcium (8.5-10.1) mg/dL Total Bilirubin (0.20-1.00) mg/dL AST (15-37) U/L ALT (13-56) U/L Alkaline Phosphatase (45-117) U/L Lactate Dehydrogenase (84-246) U/L Total Protein (6.4-8.2) g/dL Albumin (3.2-5.0) g/dL Globulin (2.2-4.2) g/dL Albumin/Globulin Ratio (0.9-2.4) RATIO Diagnostic Data: Diagnostic Data Paracentesis Ultrasound 04/14/20 09:30 IMPRESSION: Not enough fluid for a safe paracentesis. Electronically Signed: Dom Barrow, at 15:10 EDT , Service support , Abdomen/Pelvis CT 04/14/20 12:16 IMPRESSION: 1. Probable cirrhosis, moderate ascites. 2. Innumerable hepatic lesions, presumed metastases. 3. Incompletely characterized pancreatic head, refer to dedicated proper technique imaging to exclude possibility of pancreatic neoplasm. 4. Biliary dilation, presumably obstruction. Gastroneurology referral is advised. 5. 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 6. No intestinal obstruction. Electronically Signed: Carlos Trujillo, at 16:33 EDT Tel , Service support , Assessment and Plan Metastatic breast cancer with liver and peritoneal metastasis on palliative chemotherapy with Taxotere. Ascitic fluid not enough for tapping. Vomiting and abdominal pain may be related to metastatic disease. Stool for C. difficile is pending. Prognosis is poor but depends on response to chemotherapy. Discussed disease status with PT and her . They are thinking about their options. Suggestion is to continue supportive care. If she stabilizes and is discharged home, she should follow up in the [facility] with Dr. Dolan Medications: Prescriptions This Visit Medication Instructions Recorded Lidocaine/Prilocaine 1 applicatio TP DAILY PRN PRN 04/14/20 [Lidocaine-Prilocaine Cream] Medications Added to Medication List This Visit Category Date Time Status Enoxaparin [Lovenox] Med 04/15/20 10:00 Hold 40 mg SC DAILY Spironolactone [Aldactone] Med 04/15/20 10:00 Active 25 mg PO DAILY Primary Care Provider: Dr. Quang Dwyer MD Referring Provider: - Problem List (1) Peritoneal metastases Status: Chronic (2) Vomiting and diarrhea Status: Acute (3) Metastatic breast cancer Status: Chronic (4) Ascites Status: Chronic Qualifiers: Ascites type: malignant Qualified Code(s): R18.0 - Malignant ascites Office Visits / Consults: [id number] OP Consult L4
[2020-04-15 17:48] VITALS: BP 129/44; PULSE 77; RESP 18; TEMP 36.9; O2SAT 98
[2020-04-15] MEDS: Ondansetron 4 MG/2 ML Vial IV (18:29)
[2020-04-15] MEDS: 0.9% Saline Lock 10 ML Syringe IV (19:11)
[2020-04-15 20:38] VITALS: BP 113/43; PULSE 73; RESP 16; TEMP 37.1; O2SAT 95
[2020-04-16 02:34] VITALS: BP 130/41; PULSE 80; RESP 16; TEMP 36.9; O2SAT 95
[2020-04-16] MEDS: 0.9% Saline Lock 10 ML Syringe IV ×2 (02:44→12:19)
[2020-04-16] MEDS: Ondansetron 4 MG/2 ML Vial IV (02:48)
[2020-04-16 05:58] LABS: Absolute Lymphocyte Count 0.88 X10^3/uL (0.83-4.51); Basophil# 0.06 X10^3/uL; Basophil% 0.1 % (0-1); Eosinophil# 0.66 X10^3/uL; Eosinophils% 1.2 % (0-5); Hematocrit 27.6 % (37-47); Hemoglobin 9.9 g/dL (12.0-15.0); Lymphocyte # 0.88 X10^3/ul (4.0); Lymphocyte % 1.6 % (19-41); Mean Corp Hgb Conc 35.9 g/dL (32-36); Mean Corpuscular Hgb 33.4 pg (27.0-32.0); Mean Corpuscular Volume 93.2 fL (81-99); Monocyte# 4.56 X10^3/uL; Monocyte% 8.5 % (0-10); NRBC Flagged by Analyzer 0.2 % (0-5); Neutrophil # 44.99 X10^3/uL (2.7-7.7); Neutrophil % 84.2 % (47-70); POSITIVE COUNT YES; POSITIVE DIFFERENTIAL YES; POSITIVE MORPHOLOGY YES; Platelet Count 300 K/mm3 (150-450); RBC Distribution Width SD 61.6 fl (35.1-43.9); Red Blood Count 2.96 M/mm3 (4.2-5.4)
[2020-04-16 06:03] LABS: Differential Indicated SCAN CRITERIA MET; White Blood Count 53.5 K/mm3 (4.4-11.0)
[2020-04-16 06:17] LABS: Differential Comment SCANNED; Reactive Lymphocyte 1+
[2020-04-16 06:19] LABS: Anion Gap 5 (5-15); BUN 45 mg/dL (7-18); BUN/Creat Ratio 43.3 RATIO (10-20); Calcium,Total 6.8 mg/dL (8.5-10.1); Chloride 104 mmol/L (98-107); Creatinine, Serum 1.04 mg/dL (0.55-1.02); EST Glomerular Filtration Rate 55 mL/min (>60); Est Glom Filt Rate - Afr Amer 67 mL/min (>60); Estimated Creatinine Clearance 38.67 ml/min; Glucose 126 mg/dL (74-106); Potassium 4.7 mmol/L (3.5-5.1); Sodium Level 133 mmol/L (136-145)
[2020-04-16 08:30] VITALS: BP 120/37; PULSE 73; RESP 16; TEMP 36.5; O2SAT 98
--- NOTE | 2020-04-16 08:58 | NURSING ---
wound photo: left chest
[2020-04-16] MEDS: Gabapentin 300 MG Capsule PO (09:45)
[2020-04-16] MEDS: Spironolactone 25 MG Tablet PO (09:45)
[2020-04-16] MEDS: Enoxaparin 40 MG/0.4 ML Syringe SC (09:45)
--- NOTE | 2020-04-16 11:40 | PCM.DC ---
- Discharge Diagnoses Current Active Problems: Current Active and Chronic Problems (Last Reviewed 04/10/20 @ 09:45 by Ria Coyne) Abdominal pain (Acute) Intractable abdominal pain (Acute) Nausea and vomiting (Acute) Metastatic breast cancer (Chronic) Ascites (Chronic) Peritoneal metastases (Chronic) Vomiting and diarrhea (Acute) Liver metastases (Chronic) You will use the following diet at home:: No restrictions Your food should be the consistency of: Regular Your liquids should be the consistency of: Regular/Thin Discharge Activity: Return to Normal Activity Allergies/Adverse Reactions: Allergies No Known Allergies Allergy (Verified 04/14/20 11:41) Medications to take at Discharge Ondansetron [Zofran] 8 mg PO Q8H PRN PRN 10 Days #30 tab 02/22/20 Omega3,5,6,7,9 No.1/[place] Oil [Complete [place] Softgel] 2 ea PO BID 02/28/20 Turmeric Root Extract [Turmeric Curcumin] 750 mg PO DAILY 02/28/20 Ubidecarenone/Vit E/Vit E Mix [Co-Enzyme Q10 100 mg Softgel] 1 ea PO DAILY 02/28/20 Gabapentin [Neurontin] 300 mg PO BID 04/10/20 Lidocaine/Prilocaine [Lidocaine-Prilocaine Cream] 1 applicatio TP DAILY PRN PRN 04/14/20 Oxycodone [Oxyir] 5 - 10 mg PO Q4H PRN PRN 2 Days #24 tab 04/16/20 Vancomycin [Vancocin] 125 mg PO Q6H 10 Days #40 cap 04/16/20 The following prescriptions were given: Oxycodone [Oxyir] 5 - 10 mg PO Q4H PRN PRN 2 Days #24 tab PRN Reason: Pain Score 6-10/10 Transmission Status: Sent to [id number] Vancomycin [Vancocin] 125 mg PO Q6H 10 Days #40 cap Prescription Printed Primary Care Physician: Quang Dwyer MD [Primary Care Provider] - Please follow up with your Primary Care Physician in: 1-2 ashleeels Test Results: Test results from this visit will be discussed in further detail at your follow-up appointment, if applicable. Please Follow Up With: Daphney Dolan MD - Oncology When: Call for appointment, Dr. Dolan returns . Please Follow Up With: Palliative Care When: as needed Proposed Discharge Date: 04/16/20
[2020-04-16 12:22] LABS: Pathologist Review Reviewed
--- NOTE | 2020-04-16 13:36 | PCM.DC.SUM ---
Discharge Date and Diagnosis - Problem List Patient Problems: Active and Suspected Problems (Last Reviewed 04/10/20 @ 09:45 by Ria Coyne) Abdominal pain (Acute) Intractable abdominal pain (Acute) Nausea and vomiting (Acute) Vomiting and diarrhea (Acute) Date of Admission: 04/14/20 Date of Discharge: 04/16/20 - Primary Discharge Diagnosis Acute Problems: Active Problems (Last Reviewed 04/10/20 @ 09:45 by Ria Coyne) Abdominal pain 2/2 metastatic breast cancer C diff colitis Ascites Normocytic Anemia - Secondary Discharge Diagnosis Chronic Problems: Chronic Problems (Last Reviewed 04/10/20 @ 09:45 by Ria Coyne) Metastatic breast cancer (Chronic) Ascites (Chronic) Peritoneal metastases (Chronic) Anemia (Chronic) Cancer of left female breast (Chronic) Regional lymph node metastasis present (Chronic) Bone metastases (Chronic) Liver metastases (Chronic) HTN (hypertension) (Chronic) Wound of left breast (Chronic) Hospital Course and Treatment Imaging Results: US/Paracentesis with US IMPRESSION: Not enough fluid for a safe paracentesis. CT/Abdomen/Pelvis WITH Contrast IMPRESSION: 1. Probable cirrhosis, moderate ascites. 2. Innumerable hepatic lesions, presumed metastases. 3. Incompletely characterized pancreatic head, refer to dedicated proper technique imaging to exclude possibility of pancreatic neoplasm. 4. Biliary dilation, presumably obstruction. Gastroneurology referral is advised. 5. 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 6. No intestinal obstruction. Consultations 04/14/20 20:58 Consult: Onc/Wound/[employer] Routine Comment: Oncology : Pra Operations: None Procedures: None Summary of Care Provided: Hospital Course: The patient is a 74 year old F with pmhx of metastatic breast cancer undergoing chemo thru Dr. Dolan who presented to the ER with abdominal pain, swelling, diarrhea, nausea and vomiting following chemotherapy. The patient had chemo 3 days prior followed by dose of Neulasta the next day. She began having her symptoms the day after chemo. They continue to worsen so she came to the emergency room. She had a elevated white count at 39,000, CT of the abdomen showed mets and ascites with abnormal LFTs consistent with prior. She was felt to have abdominal pain secondary to metastatic disease and ascites. She was admitted to the medical surgical floor. She was treated primarily with supportive care. She had an ultrasound of her abdomen but there was not enough fluid present for a paracentesis. Oncology was consulted and she will follow-up to discuss if she has further chemo options. Patient had at one point said that she did not want chemo anymore as it made her feel unwell, so a palliative, hospice referral was made. The patient opted for palliative care as she wants to see what other options there are for her. We sent the patient's stool for C. difficile which was positive. She was placed on oral vancomycin. She had good control of her nausea and abdominal pain. She was discharged home in stable condition. She will need to follow-up with her oncologist as soon as possible. She will need follow-up with her PCP in 1 to 2 weeks. Her prognosis is poor. This patient was seen by Ray Cole PA-C under the supervision of Doctor Pugh. [] Patient Problems: Active and Suspected Problems (Last Reviewed 04/10/20 @ 09:45 by Ria Coyne) Abdominal pain (Acute) Intractable abdominal pain (Acute) Nausea and vomiting (Acute) Vomiting and diarrhea (Acute) - Physical Exam Vitals/I&O's: Vital Signs Temp Pulse Resp BP Pulse Ox 97.7 F L 73 16 120/37 L 98 04/16/20 08:30 04/16/20 08:30 04/16/20 08:30 04/16/20 08:30 04/16/20 08:30 Oxygen Delivery Method [1 ( Room Air Initial Baseline)] Oxygen Delivery Method Room Air Weight: 108 lb 14.534 oz Body Mass Index (BMI) 20.1 Intake and Output for Last 24 Hours 04/14/20 04/15/20 04/16/20 23:59 23:59 23:59 Intake Total 1000 / 1000 1500 / 1600 1180 / 1180 Output Total 1150 / 1450 300 / 300 Balance 1000 / 1000 350 / 150 880 / 880 General: Alert, Oriented x3, Cooperative HEENT: Atraumatic, PERRLA, EOMI, Normocephalic Neck: Supple, No JVD, Negative Carotid Bruits Lungs: Clear to auscultation, Normal air movement Cardiovascular: Regular rate, No murmurs Abdomen: Bowel Sounds Present, Soft, Non Tender, Distended - mildly Extremities: No edema, Capillary Refill Less than 3 Seconds Skin: No rashes, No breakdown Musculoskeletal: No Tenderness to Palpation of Joints or Extremities Neurological: Cranial nerves II-XII grossly intact Psych/Mental Status: Normal Affect, Appropriate, Alert and oriented to time, place, person, mood and affect Microbiology Past 72 Hours 04/15/20 14:15 Stool Enteric Bacteriology - Final 04/15/20 14:15 Stool C. difficile GDH Antigen & Toxins - Final 04/15/20 14:15 Stool C. difficile DNA Amplification - Final Laboratory Results 04/16/20 05:45: WBC 53.5 H*, RBC 2.96 L, Hgb 9.9 L, Hct 27.6 L, MCV 93.2, MCH 33.4 H, MCHC 35.9, RDW Std Deviation 61.6 H, RDW Coeff of Марина 19.0 H, Plt Count 300, MPV 11.0, Immature Gran % (Auto) 4.400 H, Neut % (Auto) 84.2 H, Lymph % (Auto) 1.6 L, Cole % (Auto) 8.5, Eos % (Auto) 1.2, Baso % (Auto) 0.1, Absolute Neuts (auto) 45.0 H, Absolute Lymphs (auto) 0.88, Nucleated RBC % 0.2, Differential Comment SCANNED, Diff Path Review Reviewed, Reactive Lymphocytes 1+ 04/16/20 05:45: Sodium 133 L, Potassium 4.7, Chloride 104, Carbon Dioxide 24.0, Anion Gap 5, BUN 45 H, Creatinine 1.04 H, Estim Creat Clear Calc 38.67, Est GFR (MDRD) Af Amer 67, Est GFR (MDRD) Non-Af 55 L, BUN/Creatinine Ratio 43.3 H, Glucose 126 H, Calcium 6.8 L Current Medications Hydrocodone Bitart/Acetaminophen ([employer] [facility] 5mg-325mg) 1 tablet PO Q6 [facility] Last Admin: 04/16/20 13:19 Dose: Not Given Documented by: Enoxaparin Sodium (Lovenox) 40 mg SC DAILY [facility] Last Admin: 04/16/20 09:45 Dose: 40 mg Documented by: Gabapentin (Neurontin) 300 mg PO BID [facility] Last Admin: 04/16/20 09:45 Dose: 300 mg Documented by: Heparin Sodium (Beef Lung) () 50 units IV UD PRN PRN Reason: Port-a-Cath (VAD)Heparin Flush Last Admin: 04/16/20 12:19 Dose: 50 units Documented by: Morphine Sulfate () 4 mg IV Q3H PRN PRN PRN Reason: Pain Score 6-10/10 Ondansetron HCl (Zofran) 4 mg IV Q8H PRN PRN PRN Reason: NAUSEA/VOMITING Last Admin: 04/16/20 02:48 Dose: 4 mg Documented by: Sodium Chloride () 10 - 40 ml IV UD PRN PRN Reason: Port-a-Cath (VAD) Flush Last Admin: 04/16/20 12:19 Dose: 10 ml Documented by: Spironolactone (Aldactone) 25 mg PO DAILY [facility] Last Admin: 04/16/20 09:45 Dose: 25 mg Documented by: Discharge Diet: No Restrictions Discharge Activity: Return to Normal Activity Home Medications: Medications to take at Discharge Ondansetron [Zofran] 8 mg PO Q8H PRN PRN 10 Days #30 tab 02/22/20 Omega3,5,6,7,9 No.1/Wallace Oil [Complete [place] Softgel] 2 ea PO BID 02/28/20 Turmeric Root Extract [Turmeric Curcumin] 750 mg PO DAILY 02/28/20 Ubidecarenone/Vit E/Vit E Mix [Co-Enzyme Q10 100 mg Softgel] 1 ea PO DAILY 02/28/20 Gabapentin [Neurontin] 300 mg PO BID 04/10/20 Lidocaine/Prilocaine [Lidocaine-Prilocaine Cream] 1 applicatio TP DAILY PRN PRN 04/14/20 Oxycodone [Oxyir] 5 - 10 mg PO Q4H PRN PRN 2 Days #24 tab 04/16/20 Vancomycin [Vancocin] 125 mg PO Q6H 10 Days #40 cap 04/16/20 Following Prescrptions Were Given to Patient: Oxycodone [Oxyir] 5 - 10 mg PO Q4H PRN PRN 2 Days #24 tab PRN Reason: Pain Score 6-10/10 Transmission Status: Received by [id number] Vancomycin [Vancocin] 125 mg PO Q6H 10 Days #40 cap Prescription Printed Primary Care Physician: Quang Dwyer MD [Primary Care Provider] - Please follow up with your Primary Care Physician in: 1-2 juan Please Follow Up With: Daphney Dolan MD - Oncology When: Call for appointment, Dr. Dolan returns . Please Follow Up With: Palliative Care When: as needed Disposition: Home Minutes spent on discharge:: 35 Patient Condition:: Stable Medical Necessity - Tobacco Use Smoking Status: Never smoker Tobacco Use: Non-smoker Meaningful Use Info Meaningful Use Diagnoses (Choose all that apply): None applicable
[2020-04-16 15:20] VITALS: BP 125/39; PULSE 82; RESP 18; TEMP 36.9; O2SAT 98
--- NOTE | 2020-04-17 13:13 | CASEMGMT ---
MELITA LOVE Discharge Follow-Up Phone Call. Lace: 10 Strata: 3 Discharge Date: 04/16/20 Adm Dx: Abdominal pain Attempted discharge follow-up phone call. No answer. Message left for pt/ to return all to CM if they have any questions/concerns/needs. Phone number provided. Loyda GOODWIN RN CM
== END 2020-04-16 15:32 | disposition hospice, home (50) | DRG 436 ==
LOC: ED 17:32 → MS3 17:58
PROVIDERS: Emergency Medicine; Physician Assistant; Admitting Provider Internal Medicine; Emergency Provider Physician Assistant Medical; PCP Legal Medicine; Visit Provider Internal Medicine
DX: C78.7 Secondary malignant neoplasm of liver and intrahepatic bile duct (principal); A04.72 Enterocolitis due to Clostridium difficile, not specified as recurrent; R18.0 Malignant ascites; C77.9 Secondary and unspecified malignant neoplasm of lymph node, unspecified; C79.51 Secondary malignant neoplasm of bone; C78.6 Secondary malignant neoplasm of retroperitoneum and peritoneum; D64.9 Anemia, unspecified; C50.912 Malignant neoplasm of unspecified site of left female breast; I10 Essential (primary) hypertension; Z79.899 Other long term (current) drug therapy
CPT/HCPCS: 11042; 11045; 36415; 36591; 49083; 74177; 80048; 80053; 83605; 83615; 83690; 85025; 85610; 86850; 86900; 86901; 87493; 87506; 97802; 99251; 99285; J7030; Q9967; A4216; G0463; J2405